=== PATIENT | female | born 1965 | race Caucasian/White ===

== ENCOUNTER 2022-12-25 08:57 | Emergency (ER) | payer OTHER, SELFPAY ==
[2022-12-25] VITALS (24 sets, daily range): BP systolic 161–163; BP diastolic 84–91; PULSE 70–101; RESP 13–22; TEMP 36.6; O2SAT 96–100; BMI 25.6
--- NOTE | 2022-12-25 09:22 | ECG_ITS ---
The [facility] Test Date: 2022-12-25 Pat Name: GILLIAN ISABEL Department: Room: - Gender: Female Student Officer: : 1965 Requested By: JAY ZAMBRANO Order Number: [id number] Reading MD: RAMILA BELTRÁN Measurements Intervals Orient Rate: 76 P: 56 CT: 136 QRS: 90 QRSD: 76 T: 49 QT: 390 QTc: 420 Interpretive Statements 1100 Sinus rhythm 1102 Sinus arrhythmia 9110 normal ECG No previous ECG available for comparison Electronically Signed On 12-26-2022 6:31:00 EDT by RAMILA BELTRÁN
--- NOTE | 2022-12-25 09:22 | XR_ITS ---
The [address] [address] Patient Name: GILLIAN ISABEL MRN: [id number] date: 1965 Sex: F Assigned Patient Location: ER Current Patient Location: ER Accession/Order Number: [id number] Exam Date: 12/25/2022 09:50 Report Date: 12/25/2022 10:33 At the request of: REILLY ZHONG Procedure: XR acute abdomen series EXAMINATION: XR acute abdomen series HISTORY: n/v/d COMPARISON: No relevant comparison available. FINDINGS: LUNGS: No infiltrate, pneumothorax, or pleural effusion. MEDIASTINUM: No abnormal widening. BOWEL GAS PATTERN: Non-obstructed. No abnormal dilation or suspicious fluid levels. FREE AIR: None. CALCIFICATIONS: Rounded calcification projecting anterior to the sacrum; likely a granuloma or uterine leiomyoma. BONES: No fracture or visible bone lesion. OTHER: Negative. IMPRESSION: 1. No acute cardiopulmonary process. 2. Normal bowel gas pattern. No suspicious findings to account for patient's symptoms. Electronically authenticated by: RICKY ANDUJAR Date: 12/25/2022 10:33
--- NOTE | 2022-12-25 09:22 | ED_ITS ---
HPI - Dizziness General Chief Complaint: Dizziness Stated Complaint: NAUSEA/VOMITTING Time Seen by Provider: 12/25/22 09:22 Source: patient Mode of arrival: Wheelchair Limitations: no limitations History of Present Illness HPI Narrative: pt presents to emergency department complaining of nausea and vomiting.He states last night after she ate pizza she has been vomiting and had diarrhea couple times. She denies any abdominal pain. She states she has vomited everything she has in her and she is now dry heaving. She only had this issue in the past when she had a gallbladder but she had a cholecystectomy. She denies any hematemesis, melena, hematochezia. She denies any fever, chills, cough. She denies chest pain, shortness of breath. Denies any flank pain, hematuria, dysuria. Patient denies any trauma. Denies any headache. Related Data Previous Rx's Medication Instructions Recorded ondansetron 8 mg disintegrating 8 mg PO Q8H #10 tabs 12/25/22 tablet Allergies Allergy/AdvReac Type Severity Reaction Status Date / Time No Known Drug Allergies Allergy Verified 12/25/22 09:04 Review of Systems ROS Status of ROS 10 or more systems reviewed and unremarkable except as noted in history and below PFSH PFS Social History Smoking status: Current every day smoker Exam Narrative Exam Narrative: Nurses notes and vital signs reviewed and patient is not hypoxic. General: Nontoxic, dry heaving, uncomfortable but not in distress. Skin: Warm, dry, no pallor noted. No Rash Head: Normocephalic, atraumatic. Neck: Supple, non-tender. Eye: Pupils are equal, round and EOMI. No scleral icterus. Ears, Nose, Mouth, and Throat: TM clear, no posterior oropharynx erythema or nasal mucosal hypertrophy, uvula is mid-line Oral mucosa is dry Cardiovascular: Regular Rate and Rhythm without murmur, gallop or rub. Respiratory: No accessory muscle use or respiratory distress. Lungs are clear to auscultation, no wheezing, rales or rhonchi Chest Wall: no tenderness Back: No midline thoracic or lumbar vertebral tenderness. No CVA tenderness Musculoskeletal: normal ROM, no calf or popliteal tenderness, no lower extremity edema/swelling GI: Abdomen is soft, non-distended. Normal bowel sounds. No masses appreciated. No tenderness to palpation. No rebound, guarding, or rigidity noted. Neurological: A&O x4. No cranial nerve dysfunction observed. No truncal ataxia. Moves all extremities. Sensation intact. Psychiatric: Cooperative and interactive. Constitutional Vital Signs - 24 hr 12/25/22 09:04 12/25/22 09:31 12/25/22 09:33 Temperature 97.9 F Pulse Rate 83 80 Pulse Rate [Monitor] 76 Respiratory Rate 18 16 15 Blood Pressure Blood Pressure [Right Arm] 161/84 H Pulse Oximetry 100 99 Oxygen Delivery Method Room Air 12/25/22 09:34 12/25/22 10:03 12/25/22 10:10 Temperature Pulse Rate 77 Pulse Rate [Monitor] Respiratory Rate 21 Blood Pressure 163/91 H Blood Pressure [Right Arm] Pulse Oximetry 96 96 Oxygen Delivery Method 12/25/22 10:20 12/25/22 11:01 12/25/22 11:10 Temperature Pulse Rate 78 80 86 Pulse Rate [Monitor] Respiratory Rate 20 14 17 Blood Pressure Blood Pressure [Right Arm] Pulse Oximetry 97 Oxygen Delivery Method 12/25/22 11:20 12/25/22 11:30 12/25/22 11:40 Temperature Pulse Rate 83 101 H 89 Pulse Rate [Monitor] Respiratory Rate 16 15 13 Blood Pressure Blood Pressure [Right Arm] Pulse Oximetry 98 Oxygen Delivery Method 12/25/22 11:50 12/25/22 12:00 12/25/22 12:10 Temperature Pulse Rate 81 72 74 Pulse Rate [Monitor] Respiratory Rate 20 21 22 Blood Pressure Blood Pressure [Right Arm] Pulse Oximetry Oxygen Delivery Method 12/25/22 12:20 12/25/22 12:30 12/25/22 12:40 Temperature Pulse Rate 83 95 H 77 Pulse Rate [Monitor] Respiratory Rate 19 18 19 Blood Pressure Blood Pressure [Right Arm] Pulse Oximetry Oxygen Delivery Method 12/25/22 12:50 12/25/22 13:00 12/25/22 13:10 Temperature Pulse Rate 76 73 71 Pulse Rate [Monitor] Respiratory Rate 18 15 22 Blood Pressure Blood Pressure [Right Arm] Pulse Oximetry 97 Oxygen Delivery Method 12/25/22 13:20 Temperature Pulse Rate 75 Pulse Rate [Monitor] Respiratory Rate 16 Blood Pressure Blood Pressure [Right Arm] Pulse Oximetry 98 Oxygen Delivery Method Course Vital Signs Vital signs: Vital Signs Temperature 97.9 F 12/25/22 09:04 Pulse Rate 76 12/25/22 09:04 Respiratory Rate 18 12/25/22 09:04 Blood Pressure 161/84 H 12/25/22 09:04 Pulse Oximetry 100 12/25/22 09:04 Oxygen Delivery Method Room Air 12/25/22 09:04 Temperature 97.9 F 12/25/22 09:04 Pulse Rate 72 12/25/22 16:15 Respiratory Rate 18 12/25/22 16:15 Blood Pressure 163/91 H 12/25/22 09:34 Pulse Oximetry 100 12/25/22 16:15 Oxygen Delivery Method Room Air 12/25/22 16:15 MDM - Dizziness MDM Narrative Medical decision making narrative: He was given IV fluids, antibiotics and analgesics. The patient was evaluated several times after antiemetics and she continued to vomit. THE results were discussed with the patient. She continued to run to the bathroom and CT scan was ordered. It demonstrated colitis. The patient continued to be dizzy and nauseated we tried Antivert to see if it was 2ry to vertigo but that did not help either. 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 And we discuss cyclic vomiting syndrome which she states it could be a possibility. The patient was given 10 mg of Haldol IM and this is what ultimately broke the cycle she felt better. Vomiting. Discussed with patient the need to discontinue marijuana. Continue hydration. Given a prescription for antiemetics. Follow up with primary care doctor and gastroenterology. At this time the patient is without objective evidence of an acute process requiring hospitalization or inpatient management. The patient has remained hemodynamically stable. No additional indication for emergent studies at this time. I answered all questions. Discussed discharge instructions including standard anticipatory guidance and what should prompt a return to the emergency department, including if they get worse are not getting better or develops any new or concerning symptoms. I've given them specific time frame in which to follow-up, and who to follow-up with. The patient demonstrates understanding. Patient is nontoxic and stable for discharge with outpatient follow-up. This note was created with the assistance of a speech recognition program. Although the intention is to generate documents that actually reflects the content of the visit, no guarantees can be provided that every mistake has been identified and corrected by editing. Differential Diagnosis Differential diagnosis: Likely benign paroxysmal positional vertigo and orthostatic hypotension Lab Data Attestation: I reviewed the patient's lab results. Labs: Lab Results 12/25/22 12/25/22 Range/Units 09:18 11:00 WBC 10.8 (4.0-11.0) 10^3/uL RBC 4.58 (4.20-5.40) 10^6/uL Hgb 14.4 (12.0-16.0) g/dL Hct 42.2 (36.0-48.0) % MCV 92.1 (81.0-99.0) fL MCH 31.4 (26.7-34.0) pg MCHC 34.1 (29.9-35.2) g/dL RDW 12.7 (11.0-15.0) % Plt Count 299 (150-450) 10^3/uL MPV 9.6 (9.5-13.5) fL Neut % (Auto) 89.0 H (43.0-75.0) % Lymph % (Auto) 7.6 L (20.5-60.0) % Maverick % (Auto) 2.6 (1.7-12.0) % Eos % (Auto) 0.0 L (0.9-7.0) % Baso % (Auto) 0.3 (0.2-2.0) % Neut # (Auto) 9.6 H (1.4-6.5) 10^3/uL Lymph # (Auto) 0.8 L (1.2-3.8) 10^3/uL Maverick # (Auto) 0.3 (0.3-0.8) 10^3/uL Eos # (Auto) 0.0 (0.0-0.7) 10^3/uL Baso # (Auto) 0.0 (0.0-0.1) 10^3/uL Abs Immat Gran (auto) 0.05 H (0.00-0.03) 10^3/uL Imm/Tot Granulo (auto) 0.5 (0.0-0.5) % Sodium 139 (136-145) mmol/L Potassium 3.5 (3.5-5.1) mmol/L Chloride 103 (98-107) mmol/L Carbon Dioxide 23.7 (21.0-32.0) mmol/L Anion Gap 15.8 BUN 8.0 (7.0-18.0) mg/dL Creatinine 0.90 (0.55-1.02) mg/dL Est GFR ( Amer) >60 (>=60) Est GFR (Non-Af Amer) >60 (>=60) BUN/Creatinine Ratio 8.9 Glucose 147 H (74-106) mg/dL Lactate 1.8 (0.4-2.0) mmol/L Calcium 9.5 (8.5-10.1) mg/dL Total Bilirubin 0.3 (0.2-1.0) mg/dL AST 16 (15-37) U/L ALT 17 (14-59) U/L Alkaline Phosphatase 139 H (46-116) U/L Troponin I High Sens 5.2 (4.0-51.3) pg/mL Total Protein 8.2 (6.4-8.2) g/dL Albumin 4.2 (3.4-5.0) g/dL Globulin 4.0 g/dL Albumin/Globulin Ratio 1.0 Lipase 55.0 L (73.0-393.0) U/L Urine Color Lt. yellow (YELLOW) Urine Clarity Clear (CLEAR) Urine pH 7.5 (5.0-9.0) Ur Specific Callaway 1.020 (1.005-1.025) Urine Protein Negative (NEG/TRACE) mg/dL Urine Glucose (UA) Negative (NEGATIVE) mg/dL Urine Ketones 15 A (NEGATIVE) mg/dL Urine Occult Blood Small A (NEGATIVE) Urine Nitrite Negative (NEGATIVE) Urine Bilirubin Negative (NEGATIVE) Urine Urobilinogen 0.2 (0.2-1.0) EU/dL Ur Leukocyte Esterase Negative (NEGATIVE) ECG Data Attestation: I personally reviewed and interpreted this ECG as follows: Discharge Plan Discharge Chief Complaint: Dizziness Clinical Impression: Cyclic vomiting syndrome, Colitis Patient Disposition: Home, Self-Care Time of Disposition Decision: 15:23 Condition: Good Mode of Transportation: Private Vehicle Prescriptions / Home Meds: New ondansetron 8 mg tablet,disintegrating 8 mg PO Q8H Qty: 10 0RF Instructions: Cyclic Vomiting Syndrome (ED) Stand Alone Forms: Portal Instructions Referrals: JAY ZAMBRANO [Primary Care Provider] - 1 week Discharge Date/Time: 12/25/22 16:14
[2022-12-25] MEDS: 0.9 % SODIUM CHLORIDE 1,000 ML 999 ML IV (09:26)
[2022-12-25] MEDS: ONDANSETRON PF 4 MG/2 ML VIAL IV ×2 (09:27→10:58)
[2022-12-25 09:29] LABS: Basophils Percent Auto 0.3 % (0.2-2.0); Hematocrit 42.2 % (36.0-48.0); Hemoglobin 14.4 g/dL (12.0-16.0); Immature Granulocytes Abs Auto 0.05 10^3/uL (0.00-0.03); Immature Granulocytes Pct Auto 0.5 % (0.0-0.5); Lymphocytes Absolute Auto 0.8 10^3/uL (1.2-3.8); Lymphocytes Percent Auto 7.6 % (20.5-60.0); Mean Corpuscular HGB Conc 34.1 g/dL (29.9-35.2); Mean Corpuscular Hemoglobin 31.4 pg (26.7-34.0); Mean Corpuscular Volume 92.1 fL (81.0-99.0); Mean Platelet Volume 9.6 fL (9.5-13.5); Monocytes Absolute Auto 0.3 10^3/uL (0.3-0.8); Monocytes Percent Auto 2.6 % (1.7-12.0); Neutrophils Absolute Auto 9.6 10^3/uL (1.4-6.5); Platelet Count 299 10^3/uL (150-450); Red Blood Count 4.58 10^6/uL (4.20-5.40); Red Cell Distribution Width 12.7 % (11.0-15.0); White Blood Count 10.8 10^3/uL (4.0-11.0)
[2022-12-25 09:57] LABS: Alanine Aminotransferase 17 U/L (14-59); Albumin Level 4.2 g/dL (3.4-5.0); Alkaline Phosphatase 139 U/L (46-116); Anion Gap 15.8; Aspartate Amino Transferase 16 U/L (15-37); BUN Creatinine Ratio 8.9; Bilirubin Total 0.3 mg/dL (0.2-1.0); Calcium 9.5 mg/dL (8.5-10.1); Carbon Dioxide 23.7 mmol/L (21.0-32.0); Chloride 103 mmol/L (98-107); Estimated GFR (African America >60 (>=60); Estimated GFR (Non-African Ame >60 (>=60); Glucose 147 mg/dL (74-106); Potassium 3.5 mmol/L (3.5-5.1); Sodium 139 mmol/L (136-145); Total Protein 8.2 g/dL (6.4-8.2); Troponin I High Sensitivity 5.2 pg/mL (4.0-51.3)
[2022-12-25 09:59] LABS: Lactate/Lactic Acid 1.8 mmol/L (0.4-2.0)
[2022-12-25] MEDS: PROMETHAZINE HCL 25 MG/ML VIAL IV (10:58)
[2022-12-25 11:24] LABS: Bilirubin Urine NEGATIVE (NEGATIVE); Blood Urine SMALL (NEGATIVE); Clarity Urine CLEAR (CLEAR); Color Urine LT. YELLOW (YELLOW); Glucose Urine UA NEGATIVE (NEGATIVE); Ketones Urine 15 mg/dL (NEGATIVE); Leukocyte Esterase Urine NEGATIVE (NEGATIVE); Nitrite Urine NEGATIVE (NEGATIVE); Protein Urine NEGATIVE (NEG/TRACE); Urobilinogen Urine 0.2 EU/dL (0.2-1.0); pH Urine 7.5 (5.0-9.0)
[2022-12-25] MEDS: MECLIZINE HCL 12.5 MG TABLET 50 MG PO (13:01)
--- NOTE | 2022-12-25 13:13 | CT_ITS ---
The [address] [address] Patient Name: GILLIAN ISABEL MRN: [id number] date: 1965 Sex: F Assigned Patient Location: ER Current Patient Location: ER Accession/Order Number: [id number] Exam Date: 12/25/2022 13:35 Report Date: 12/25/2022 14:20 At the request of: REILLY ZHONG Procedure: CT head/brain wo con EXAMINATION: CT head/brain wo con HISTORY: dizziness Dizziness COMPARISON: No relevant comparison available. TECHNIQUE: Axial CT images were obtained without IV contrast. Dose reduction techniques were achieved by using automated exposure control and/or adjustment of mA and/or kV according to patient size and/or use of iterative reconstruction technique. FINDINGS: BRAIN: No edema, hemorrhage, mass, acute infarction, or inappropriate atrophy. CSF SPACES: No hydrocephalus, subarachnoid hemorrhage, or mass. Appropriate for age. SKULL: No fracture, mass, or other significant visible lesion. SINUSES: No significant mucosal thickening or fluid on the limited views. ORBITS: No appreciable abnormality on the limited views. OTHER: Negative IMPRESSION: 1. Normal CT appearance of the brain. Electronically authenticated by: RICKY ANDUJAR Date: 12/25/2022 14:20
[2022-12-25] MEDS: DIAZEPAM 5 MG/ML - 2 ML INJ SYRINGE IV (13:25)
--- NOTE | 2022-12-25 13:36 | CT_ITS ---
[address] [address] Patient Name: GILLIAN ISABEL MRN: [id number] date: 1965 Sex: F Assigned Patient Location: ER Current Patient Location: ER Accession/Order Number: [id number] Exam Date: 12/25/2022 13:35 Report Date: 12/25/2022 14:50 At the request of: REILLY ZHONG Procedure: CT abdomen pelvis w con EXAMINATION: CT abdomen pelvis w con HISTORY: n/v Dizziness/nausea/vomiting/diarrhea COMPARISON: No relevant comparison available. TECHNIQUE: Axial, Coronal, and Sagittal images were obtained without and/or with IV contrast as indicated by examination type. Dose reduction techniques were achieved by using automated exposure control and/or adjustment of mA and/or kV according to patient size and/or use of iterative reconstruction technique. FINDINGS: LUNG BASES: No visible pulmonary or pleural disease. LIVER: No enlargement, atrophy, suspicious density, or significant focal lesion. BILIARY: No dilatation or calcification. PANCREAS: No lesion, fluid collection, or abnormal duct dilatation. SPLEEN: No enlargement or focal lesion. ADRENALS: No mass or enlargement. KIDNEYS: No mass, obstruction, or calcification. BOWEL/MESENTERY: Slightly edematous appearance and wall thickening of the cecum and ascending colon. Empty colon throughout its length. Unremarkable stomach and small bowel. AORTA/VASCULAR: No aneurysm or dissection. RETROPERITONEUM: No mass or adenopathy. LYMPH NODES: No adenopathy. URINARY BLADDER: No visible focal wall thickening, lesion, or calculus. PELVIC ORGANS: No visible mass. Pelvic organs appropriate for patient age. ABDOMINAL WALL: No mass or hernia. BONES: No bony lesion or fracture. OTHER: Negative. IMPRESSION: 1.Empty colon and slight circumferential wall thickening of the proximal colon; possible mild colitis. Electronically authenticated by: RICKY ANDUJAR Date: 12/25/2022 14:50
[2022-12-25] MEDS: HALOPERIDOL LACTATE 5 MG/ML VIAL 10 MG IM (15:20)
== END 2022-12-25 16:14 | disposition home or self-care (01) ==
PROVIDERS: Emergency Provider Emergency Medicine; PCP Family Medicine
DX: K52.9 Noninfective gastroenteritis and colitis, unspecified (principal); R11.15 Cyclical vomiting syndrome unrelated to migraine; F12.90 Cannabis use, unspecified, uncomplicated; Z90.49 Acquired absence of other specified parts of digestive tract; F17.210 Nicotine dependence, cigarettes, uncomplicated
CPT/HCPCS: 36415; 70450; 74022; 74177; 80053; 81003; 83605; 83690; 84484; 85025; 87507; 93005; 96372; 96374; 96375; 96376; 99285; Q9967

== ENCOUNTER 2023-09-16 10:48 | Emergency (ER) | payer OTHER, SELFPAY ==
[2023-09-16 10:52] VITALS: BP 145/89; PULSE 77; RESP 15; TEMP 36.8; O2SAT 98; BMI 23.9
--- NOTE | 2023-09-16 11:38 | ED.NAVMDI1 ---
HPI - Nausea/Vomiting/Diarrhea General Chief complaint: Nausea/Vomiting/Diarrhea Stated complaint: vomiting Time Seen by Provider: 09/16/23 11:38 Source: patient Mode of arrival: walk-in Limitations: no limitations History of Present Illness HPI Narrative: This patient is here for evaluation of nausea vomiting and diarrhea. She says she ate some roots shredded chicken last night for dinner and then went to work. About 4 hours after she ate her meal she had abrupt onset of nausea and vomiting. He had repeated episodes of nausea vomiting and had a little bit of diarrhea. She went home from work and continued to vomit throughout the evening. 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 She has used 2 Phenergan suppositories . She has not seen any blood in the stool or the vomitus. Past surgical history includes cholecystectomy but no other abdominal procedures. She does not have any abdominal pain at this time. She thinks she is little bit dehydrated. Related Data Previous Rx's Medication Instructions Recorded ondansetron 8 mg disintegrating 8 mg PO Q8H #10 tabs 12/25/22 tablet Allergies Allergy/AdvReac Type Severity Reaction Status Date / Time No Known Drug Allergies Allergy Verified 12/25/22 09:04 [facility] Social History Smoking status: Current every day smoker Exam Narrative Exam Narrative: Awake alert pleasant no obvious distress. Vital signs are stable. She moves about comfortably with no evidence of abdominal discomfort. Problem focused examination as below. Her abdomen is soft and tender nontender with no guarding rebound rigidity or peritoneal findings. She moves about with no grimacing or discomfort at all. HEENT shows no focus of infection. Her mucous membranes are moist and pink. Her extremities do not show evidence of leg swelling or edema. Overall hydration status appears essentially normal. Constitutional Vital Signs, click to edit/add: Last Vital Signs Temp 98.3 F 09/16/23 10:52 Pulse 77 09/16/23 10:52 Resp 15 09/16/23 10:52 BP 145/89 H 09/16/23 10:52 Pulse Ox 98 09/16/23 10:52 O2 Del Method Room Air 09/16/23 10:52 Course Vital Signs Vital signs: Vital Signs Temperature 98.3 F 09/16/23 10:52 Pulse Rate 77 09/16/23 10:52 Respiratory Rate 15 09/16/23 10:52 Blood Pressure 145/89 H 09/16/23 10:52 Pulse Oximetry 98 09/16/23 10:52 Oxygen Delivery Method Room Air 09/16/23 10:52 Temperature 98.3 F 09/16/23 10:52 Pulse Rate 77 09/16/23 10:52 Respiratory Rate 15 09/16/23 10:52 Blood Pressure 145/89 H 09/16/23 10:52 Pulse Oximetry 98 09/16/23 10:52 Oxygen Delivery Method Room Air 09/16/23 10:52 MDM - Nausea/Vomiting/Diarrhea MDM Narrative Medical decision making narrative: Based on her description of not taking any fluids and some fluid loss with diarrhea I think she will benefit from IV hydration, she in fact tolerated liter fluids very well and feels better. 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 Her symptoms are most consistent with a viral gastroenteritis. Discharge Plan Discharge Chief Complaint: Nausea/Vomiting/Diarrhea Clinical Impression: Gastroenteritis Patient Disposition: Home, Self-Care Time of Disposition Decision: 12:46 Prescriptions / Home Meds: No Action ondansetron 8 mg tablet,disintegrating 8 mg PO Q8H Qty: 10 0RF Additional Instructions: Clear fluids and small but frequent amounts for the next 24 hours, then slowly expand diet/Zofran as needed for nausea Referrals: JAY ZAMBRANO [Primary Care Provider] - 1 week Stand Alone Forms: Portal Instructions
[2023-09-16 11:49] LABS: Basophils Percent Auto 0.2 % (0.2-2.0); Hematocrit 45.8 % (36.0-48.0); Hemoglobin 15.3 g/dL (12.0-16.0); Immature Granulocytes Abs Auto 0.06 10^3/uL (0.00-0.03); Immature Granulocytes Pct Auto 0.5 % (0.0-0.5); Lymphocytes Absolute Auto 0.8 10^3/uL (1.2-3.8); Mean Corpuscular HGB Conc 33.4 g/dL (29.9-35.2); Mean Corpuscular Volume 92.9 fL (81.0-99.0); Mean Platelet Volume 10.1 fL (9.5-13.5); Monocytes Absolute Auto 0.4 10^3/uL (0.3-0.8); Monocytes Percent Auto 3.4 % (1.7-12.0); Neutrophils Absolute Auto 10.7 10^3/uL (1.4-6.5); Neutrophils Percent Auto 88.9 % (43.0-75.0); Platelet Count 296 10^3/uL (150-450); Red Blood Count 4.93 10^6/uL (4.20-5.40); Red Cell Distribution Width 12.3 % (11.0-15.0)
[2023-09-16] MEDS: 0.9 % SODIUM CHLORIDE 1,000 ML 999 ML IV (11:49)
[2023-09-16] MEDS: ONDANSETRON PF 4 MG/2 ML VIAL IV (11:50)
[2023-09-16 11:51] LABS: Anion Gap 15.9; BUN Creatinine Ratio 13.2; Calcium 9.3 mg/dL (8.5-10.1); Carbon Dioxide 25.6 mmol/L (21.0-32.0); Chloride 102 mmol/L (98-107); Estimated GFR (African America >60 (>=60); Estimated GFR (Non-African Ame >60 (>=60); Glucose 145 mg/dL (74-106); Potassium 3.5 mmol/L (3.5-5.1); Sodium 140 mmol/L (136-145)
[2023-09-16 12:19] VITALS: BP 106/63; PULSE 55; RESP 16; O2SAT 100
[2023-09-16 12:55] VITALS: BP 99/65; PULSE 74; RESP 16; O2SAT 98
== END 2023-09-16 12:56 | disposition home or self-care (01) ==
PROVIDERS: Emergency Provider Emergency Medicine Emergency Medical Services; PCP Family Medicine
DX: K52.9 Noninfective gastroenteritis and colitis, unspecified (principal); F17.210 Nicotine dependence, cigarettes, uncomplicated
CPT/HCPCS: 36415; 80048; 85025; 96361; 96374; 99284

== ENCOUNTER 2023-09-17 07:50 | Emergency (ER) | payer OTHER, SELFPAY ==
[2023-09-17] VITALS (8 sets, daily range): BP systolic 128–154; BP diastolic 61–66; PULSE 65–105; RESP 13–18; TEMP 36.7; O2SAT 98–99; BMI 23.9
--- OUTSIDE RECORDS SUMMARY | 2023-09-17 08:05 | XMS_ITS | CCD ---
Author Name Unknown Address [address] [place] [address] [address] [place] [address] Organization [facility] Care Team Providers Care Insurance And Financial Services Agent Name Role Phone JUAN MANUEL, DR THOMPSON Consulting Unavailable JUAN MANUEL, DR THOMPSON Attending Unavailable JUAN MANUEL, DR THOMPSON Admitting Unavailable JUAN MANUEL, DR THOMPSON Primary Care Unavailable PRATIMA, DR LANDRY Alejandro Consulting Unavailable Problems Problem Classification Problem Date Documented Da te Episodic/Chronic Other screening for suspected conditions (not mental disorders or infectious disease) (4 sources) Encounter for screening mammogram for malignant neoplasm of breast; Translations: [ENC SCR MAMMO MALIG NEOPLASM BREAST] Onset: 06-27-2022 Episodic Residual codes; unclassified (1 source) Family history of malignant neoplasm of breast; Translations: [FAMILY HX MALIG NEOPLASM OF BREAST] Onset: 07-02-2022 Episodic Residual codes; unclassified (1 source) Family history of malignant neoplasm of prostate; Translations: [FAMILY HX MALIG NEOPLASM PROSTATE] Onset: 07-02-2022 Episodic Results Test Name Value Interpretation Reference Range Facil ity MG MAMM SCREEN 3D SAMIR CADon 06-27-2022 MG MAMM SCREEN 3D SAMIR CAD Patient: GILLIAN ISABEL Exam Date: 06/27/2022 : 1965 Gender:F Ordering : DR JAY ZAMBRANO M.D. Admission #: [id number] Family : Order #: [id number] CLICK HERE TO VIEW EXAM RADIOLOGY REPORT PROCEDURE: MAMMOGRAM SCREENING 3D BILATERAL CAD COMPARISON: MG MAMM SCREEN SAMIR W CAD, 11/27/2016. MG MAMM SAMIR SCRN W CAD DIG, 11/18/2015. DIGITIZED_MAMMO, 02/28/2007. MG MAMM SCREEN SAMIR W CAD, 03/21/2019. INDICATIONS: Screening mammography Calculator Name NCI Breast Cancer Risk Assessment Tool 5 Year Breast Cancer Risk 2.50% Lifetime Breast Cancer Risk 14.50% Personal Breast Cancer No Personal Ovarian Cancer No Treatments None Family Cancers Mother with breast cancer at age 65; Father with prostate cancer at age 68. LOCATION: [facility] BREAST COMPOSITION: Scattered areas fibroglandular density. FINDINGS: DIAGNOSTIC CATEGORY 2--BENIGN FINDING: RIGHT BREAST: No significant suspicious finding. Stable benign-appearing calcification present. No significant change has occurred. LEFT BREAST: No significant suspicious finding. No significant change has occurred. RECOMMENDATIONS: ROUTINE MAMMOGRAM AND CLINICAL EVALUATION IN 12 MONTHS. PLEASE NOTE: A NORMAL MAMMOGRAM DOES NOT EXCLUDE THE POSSIBILITY OF BREAST CANCER. A CLINICALLY SUSPICIOUS PALPABLE LUMP SHOULD BE BIOPSIED. Dictated by: Landry Mitchell M.D. on 06/27/2022 at 15:16 Approved by: Landry Mitchell M.D. on 06/27/2022 at 15:19 Normal [facility] Encounters Encounter Date Encounter Type Care Provider Facility Start: 06-27-2022 End: 06-28-[address] JAY ZAMBRANO Facility: Payers Date Payer Category Payer Unknown [id number] 1959 Unknown [id number] Summary Purpose Family History No Family History Records Found Advance Directives No Advanced Directives Records Found Additional Source Comments INFORMATION SOURCE (unrecogn ized section and content) DATE CREATED AUTHOR 09/16/2022 [facility] FOR RECORDS PERTAINING TO PATIENTS WHO ARE OR HAVE BEEN ENROLLED IN A CHEMICAL DEPENDENCY/SUBSTANCEABUSE PROGRAM, SOME INFORMATION MAY BE OMITTED. This clinical summary was aggregated from multiple sources. Caution should be exercised in using it in the provision of clinical care. This summary normalizes information from multiple sources, and as a consequence, information in this document may materially change the coding, format and clinical context of patient data. In addition, data may be omitted in some cases. CLINICAL DECISIONS SHOULD BE BASED ON THE PRIMARY CLINICAL RECORDS. [employer] provides no warranty or guarantee of the accuracy or completeness of information in this document.
[2023-09-17] MEDS: 0.9 % SODIUM CHLORIDE 1,000 ML 999 ML IV (08:18)
[2023-09-17] MEDS: PROMETHAZINE HCL 25 MG/ML VIAL 12.5 MG IV (08:18)
[2023-09-17 08:25] LABS: Basophils Percent Auto 0.2 % (0.2-2.0); Hematocrit 44.3 % (36.0-48.0); Immature Granulocytes Abs Auto 0.07 10^3/uL (0.00-0.03); Immature Granulocytes Pct Auto 0.5 % (0.0-0.5); Lymphocytes Absolute Auto 2.3 10^3/uL (1.2-3.8); Mean Corpuscular HGB Conc 33.9 g/dL (29.9-35.2); Mean Corpuscular Hemoglobin 31.1 pg (26.7-34.0); Mean Corpuscular Volume 91.9 fL (81.0-99.0); Mean Platelet Volume 9.6 fL (9.5-13.5); Monocytes Absolute Auto 1.2 10^3/uL (0.3-0.8); Monocytes Percent Auto 8.4 % (1.7-12.0); Neutrophils Absolute Auto 10.7 10^3/uL (1.4-6.5); Neutrophils Percent Auto 74.9 % (43.0-75.0); Platelet Count 306 10^3/uL (150-450); Red Blood Count 4.82 10^6/uL (4.20-5.40); Red Cell Distribution Width 12.4 % (11.0-15.0); White Blood Count 14.2 10^3/uL (4.0-11.0)
[2023-09-17 08:38] LABS: Bilirubin Urine NEGATIVE (NEGATIVE); Blood Urine SMALL (NEGATIVE); Clarity Urine CLEAR (CLEAR); Color Urine YELLOW (YELLOW); Glucose Urine UA NEGATIVE (NEGATIVE); Ketones Urine >=80 mg/dL (NEGATIVE); Leukocyte Esterase Urine NEGATIVE (NEGATIVE); Nitrite Urine NEGATIVE (NEGATIVE); Protein Urine 30 mg/dL (NEG/TRACE); Specific Gravity Urine 1.025 (1.005-1.025); Urobilinogen Urine 0.2 EU/dL (0.2-1.0)
[2023-09-17 08:41] LABS: Urine Microscopic Indicated YES
[2023-09-17 08:49] LABS: Bacteria Urine SMALL #/HPF (NONE SEEN); Cast Seen? SEEN #/LPF (NONE SEEN); Crystals Seen? None Seen #/HPF (None Seen); Hyaline Casts Urine RARE; Mucus Urine SMALL (NONE SEEN); Squamous Epithelial Cell Urine MODERATE #/LPF (NONE/RARE)
[2023-09-17 08:50] LABS: Urine Culture Indicated YES
[2023-09-17 08:51] LABS: Amphetamine Screen Urine NEGATIVE (NEGATIVE); Barbiturates Screen Urine NEGATIVE (NEGATIVE); Benzodiazepines Screen Urine NEGATIVE (NEGATIVE); Buprenorphine Screen Urine NEGATIVE (NEGATIVE); Cannabinoid Screen Urine POSITIVE (NEGATIVE); Cocaine Screen Urine NEGATIVE (NEGATIVE); Methadone Screen Urine NEGATIVE (NEGATIVE); Methamphetamines Screen Urine NEGATIVE (NEGATIVE); Opiate Screen Urine NEGATIVE (NEGATIVE); Oxycodone Screen Urine NEGATIVE (NEGATIVE); Phencyclidine Screen Urine NEGATIVE (NEGATIVE); Tricyclic Antidepressant Urine NEGATIVE (NEGATIVE)
--- NOTE | 2023-09-17 09:29 | ED.NAVMDI1 ---
HPI - Nausea/Vomiting/Diarrhea General Chief complaint: Nausea/Vomiting/Diarrhea Stated complaint: NAUSEA/PUKING Time Seen by Provider: 09/17/23 08:00 Source: patient Mode of arrival: walk-in Limitations: no limitations History of Present Illness HPI Narrative: Patient here with vomiting. She went home from the hospital yesterday and felt fine but approximately 3:00 in the morning she started having some dry heaves and vomiting again. She took 1 Zofran, then repeated in about an hour. She has not had any diarrhea. She has not had fever shakes or chills. We hydrated her yesterday and she felt pretty good but then she had recurring symptoms. I will repeat her lipase today CBC and urinalysis as well as toxicology screen. Related Data Previous Rx's Medication Instructions Recorded ondansetron 8 mg disintegrating 8 mg PO Q8H #10 tabs 12/25/22 tablet Allergies Allergy/AdvReac Type Severity Reaction Status Date / Time No Known Drug Allergies Allergy Verified 12/25/22 09:04 PFSH PFSH Social History Smoking status: Former smoker Exam Narrative Exam Narrative: Patient is awake alert somewhat belligerent with nursing staff. Vital signs are stable with no tachycardia. Overall no evidence of nuchal rigidity or meningeal irritation. Her skin is warm and dry there is no clammy clamminess or diaphoresis or cyanosis. She has some burning sensation in her throat from the vomiting she believes. There is no respiratory distress cough or congestion. Cognition and mentation are normal. Constitutional Vital Signs, click to edit/add: Last Vital Signs Temp 98.1 F 09/17/23 07:52 Pulse 69 09/17/23 07:52 Resp 18 09/17/23 07:52 BP 152/63 H 09/17/23 07:52 Pulse Ox 98 09/17/23 07:52 O2 Del Method Room Air 09/17/23 07:52 Course Vital Signs Vital signs: Vital Signs Temperature 98.1 F 09/17/23 07:52 Pulse Rate 69 09/17/23 07:52 Respiratory Rate 18 09/17/23 07:52 Blood Pressure 152/63 H 09/17/23 07:52 Pulse Oximetry 98 09/17/23 07:52 Oxygen Delivery Method Room Air 09/17/23 07:52 Temperature 98.1 F 03/04/24 07:52 Pulse Rate 69 09/17/23 07:52 Respiratory Rate 18 09/17/23 07:52 Blood Pressure 152/63 H 09/17/23 07:52 Pulse Oximetry 98 09/17/23 07:52 Oxygen Delivery Method Room Air 09/17/23 07:52 MDM - Nausea/Vomiting/Diarrhea MDM Narrative Medical decision making narrative: Patient took Zofran before arrival here and still has some nausea so have given her Phenergan IV. She was given another liter of fluids. The urine toxicology screen is positive for marijuana which is probably a contributing role in her symptoms today. Her lipase is normal. White blood cell count modestly elevated consistent with her vomiting. She was given another liter of fluids. Of significance the patient says she needed to use the restroom and when the nurse stood her up in the room instead of walking several steps to use the restroom she urinated voluntarily all over the floor. Her urine test has some bacteria and white blood cells although it does not appear to be a sterile specimen until her culture comes back I will start her on an antibiotic therapy Lab Data Labs: Lab Results 09/17/23 09/17/23 Range/Units 08:03 08:22 WBC 14.2 H (4.0-11.0) 10^3/uL RBC 4.82 (4.20-5.40) 10^6/uL Hgb 15.0 (12.0-16.0) g/dL Hct 44.3 (36.0-48.0) % MCV 91.9 (81.0-99.0) fL MCH 31.1 (26.7-34.0) pg MCHC 33.9 (29.9-35.2) g/dL RDW 12.4 (11.0-15.0) % Plt Count 306 (150-450) 10^3/uL MPV 9.6 (9.5-13.5) fL Neut % (Auto) 74.9 (43.0-75.0) % Lymph % (Auto) 16.0 L (20.5-60.0) % [place] % (Auto) 8.4 (1.7-12.0) % Eos % (Auto) 0.0 L (0.9-7.0) % Baso % (Auto) 0.2 (0.2-2.0) % Neut # (Auto) 10.7 H (1.4-6.5) 10^3/uL Lymph # (Auto) 2.3 (1.2-3.8) 10^3/uL [place] # (Auto) 1.2 H (0.3-0.8) 10^3/uL Eos # (Auto) 0.0 (0.0-0.7) 10^3/uL Baso # (Auto) 0.0 (0.0-0.1) 10^3/uL Abs Immat Gran (auto) 0.07 H (0.00-0.03) 10^3/uL Imm/Tot Granulo (auto) 0.5 (0.0-0.5) % Lipase 58.0 (16.0-77.0) U/L Urine Color Yellow (YELLOW) Urine Clarity Clear (CLEAR) Urine pH 6.0 (5.0-9.0) Ur Specific [place] 1.025 (1.005-1.025) Urine Protein 30 A (NEG/TRACE) mg/dL Urine Glucose (UA) Negative (NEGATIVE) mg/dL Urine Ketones >=80 A (NEGATIVE) mg/dL Urine Occult Blood Small A (NEGATIVE) Urine Nitrite Negative (NEGATIVE) Urine Bilirubin Negative (NEGATIVE) Urine Urobilinogen 0.2 (0.2-1.0) EU/dL Ur Leukocyte Esterase Negative (NEGATIVE) Urine RBC 5-10 A (0-2) #/HPF Urine WBC 5-10 A (NONE SEEN) #/HPF Ur Squamous Epith Cells Moderate A (NONE/RARE) #/LPF Urine Crystals None seen (None Seen) #/HPF Urine Bacteria Small A (NONE SEEN) #/HPF Urine Casts Seen A (NONE SEEN) #/LPF Hyaline Casts Rare Urine Mucus Small A (NONE SEEN) Ur Culture Indicated? Yes Urine Opiates Screen Negative (NEGATIVE) Ur Buprenorphine Scrn Negative (NEGATIVE) Ur Oxycodone Screen Negative (NEGATIVE) Urine Methadone Screen Negative (NEGATIVE) Ur Barbiturates Screen Negative (NEGATIVE) U Tricyclic Antidepress Negative (NEGATIVE) Ur Phencyclidine Scrn Negative (NEGATIVE) Ur Amphetamines Screen Negative (NEGATIVE) U Methamphetamines Scrn Negative (NEGATIVE) U Benzodiazepines Scrn Negative (NEGATIVE) Urine Cocaine Screen Negative (NEGATIVE) U Cannabinoids Screen Positive A (NEGATIVE) Discharge Plan Discharge Chief Complaint: Nausea/Vomiting/Diarrhea Clinical Impression: Vomiting Patient Disposition: Home, Self-Care Time of Disposition Decision: 09:35 Prescriptions / Home Meds: No Action ondansetron 8 mg tablet,disintegrating 8 mg PO Q8H Qty: 10 0RF Additional Instructions: Macrobid/call for final urine culture results 48 hours Referrals: JAY ZAMBRANO [Primary Care Provider] - 1 week Stand Alone Forms: Portal Instructions
[2023-09-17] MEDS: HALOPERIDOL LACTATE 5 MG/ML VIAL IV (10:06)
--- NOTE | 2023-09-17 10:14 | ECG_ITS ---
[facility] Test Date: 2023-09-17 Pat Name: GILLIAN ISABEL Department: Room: - Gender: Female Inker: : 1965 Requested By: JAY ZAMBRANO Order Number: [id number] Reading MD: JOSE HINOJOSA Measurements Intervals [place] Rate: 61 P: 68 GA: 128 QRS: 92 QRSD: 76 T: 75 QT: 420 QTc: 423 Interpretive Statements 1100 Sinus rhythm 7102 Moderate right axis deviation 9110 normal ECG Compared to ECG 12/25/2022 09:32:22 Right-axis deviation now present Sinus arrhythmia no longer present Electronically Signed On 09-17-2023 22:35:10 EST by JOSE HINOJOSA
--- NOTE | 2023-09-17 10:27 | PC.NURSE ---
Daughter at bedside. Patient given education on importance of quitting marijuana. Daughter states my mother has been a stoner all her life, ever since I was a little girl that's what I remember. Education given on use of zofran and clear liquid diet. Patient states understanding.
== END 2023-09-17 10:09 | disposition home or self-care (01) ==
PROVIDERS: Emergency Provider Emergency Medicine Emergency Medical Services; PCP Family Medicine
DX: R11.10 Vomiting, unspecified (principal); R82.5 Elevated urine levels of drugs, medicaments and biological substances; Z87.891 Personal history of nicotine dependence
CPT/HCPCS: 36415; 80307; 81001; 83690; 85025; 87086; 93005; 96361; 96374; 96375; 99284

== ENCOUNTER 2023-11-30 17:12 | Emergency (ER) | payer OTHER, SELFPAY ==
[2023-11-30 17:19] VITALS: BP 157/87; PULSE 88; TEMP 36.7; O2SAT 99; BMI 24.7
--- OUTSIDE RECORDS SUMMARY | 2023-11-30 17:46 | XMS_ITS | CCD ---
Author Organization [facility] Care Team Providers Care Video Specialist Name Role Phone JUAN MANUEL, DR THOMPSON Consulting Unavailable JUAN MANUEL, DR THOMPSON Attending Unavailable JUAN MNAUEL, DR THOMPSON Admitting Unavailable JUAN MANUEL, DR THOMPSON Primary Care Unavailable PRATIMA, DR RICKY Alejandro Consulting Unavailable JAY ZAMBRANO Attending Unavailable Problems Problem Classification Problem Date Documented [...] 06/27/2022 : 1965 Gender:F Ordering : DR AJY ZAMBRANO M.D. Admission #: [id number] Family : Order #: [id number] CLICK HERE TO VIEW EXAM RADIOLOGY REPORT [...] prostate cancer at age 68. LOCATION: [facility] BREAST COMPOSITION: Scattered areas fibroglandular density. [...] PALPABLE LUMP SHOULD BE BIOPSIED. Dictated by: Ricky Mitchell M.D. on 06/27/2022 at 15:16 Approved by: Ricky Mitchell M.D. on 06/27/2022 at 15:19 Normal [facility] Encounters Encounter Date Encounter Type Care Provider Facility Start: 09-27-2023 End: 09-27-2023 ambulatory JAY ZAMBRANO Not Available Start: 06-27-2022 End: 06-28-[address] JAY ZAMBRANO Facility: Payers Date Payer Category Payer Unknown [id number] 1965 Unknown [id number] 1965 Unknown [id number] 1959 Unknown [id number] Summary Purpose Family History No Family History Records FoundNo Family History Records Found Advance Directives No Advanced Directives Records FoundNo Advanced Directives Records Found Additional Source Comments INFORMATION SOURCE (unrecogn ized section and content) DATE CREATED AUTHOR 09/16/2022 [facility] DATE CREATED AUTHOR AUTHOR'S ORGANIZ ATION 09/29/2023 [facility] FOR RECORDS PERTAINING TO PATIENTS WHO ARE [...] BE BASED ON THE PRIMARY CLINICAL RECORDS. [facility] [employer] [facility] provides no warranty or guarantee of the accuracy or completeness of information in this document.
--- NOTE | 2023-11-30 18:23 | ED.GENADUL1 ---
Documented by User: AMAURI Chen 11/30/23 20:13 HPI HPI - General Adult General Chief complaint: Nausea/Vomiting/Diarrhea Stated complaint: Nausea/Vomiting/Diarrhea Time Seen by Provider: 11/30/23 18:18 Source: patient and friend Mode of arrival: walk-in Limitations: no limitations History of Present Illness HPI narrative: Patient is a 58-year-old female presents to the ER with concerns of intractable nausea and vomiting. Patient states symptoms started around 4 AM, got temporary relief while taking a warm shower and then symptoms came back. Unable to keep down p.o. food or liquids. She denies any diarrhea or fever. Denies dysuria. Patient had a similar episode in September related to marijuana use. Patient admits to smoking marijuana on Sunday with friends. Patient Denies any chest pain or shortness of breath. Denies abdominal pain. Patient dry heaving loudly. I am just dehydrated. Severity: moderate Pain Consistency: Reports constant Relieving factors: Reports other (warm shower. ) Treatments prior to arrival: Reports none Related Data Home Medications ?Medication ?Instructions ?Recorded ?Confirmed levothyroxine 125 mcg tablet 125 mcg PO DAILY 11/30/23 11/30/23 Previous Rx's ?Medication ?Instructions ?Recorded ondansetron 8 mg disintegrating 8 mg PO Q8H #10 tabs 12/25/22 tablet Allergies Allergy/AdvReac Type Severity Reaction Status Date / Time No Known Drug Allergies Allergy Verified 12/25/22 09:04 Opioid HPI Opioid Management Most Recent Opioid Data: Last Pain Scale 8 09/17/23 07:56 Last ED Pain Assessment 11/30/23 18:19 Ur Phencyclidine Scrn Negative (NEGATIVE) 09/17/23 08:22 Review of Systems ROS Constitutional Denies: fever or chills Eyes Denies: change in vision Ears, nose, mouth, and throat Denies: throat pain or neck pain Cardiovascular Denies: chest pain or palpitations Respiratory Denies: shortness of breath or cough Gastrointestinal Reports: nausea and vomiting; Denies: abdominal pain or heartburn Genitourinary Denies: painful urination Musculoskeletal Denies: back pain or neck pain Integumentary/Breast Denies: rash, itching or redness Neurological Denies: headache Psychiatric Reports: anxiety PFSH PFSH Social History Smoking status: Former smoker Exam Narrative Exam Narrative: Nurses notes and vital signs reviewed and patient is not hypoxic. General: The patient appears In no distress having conversation at bedside before pausing to retch loudly with no output. Patient apologetic, states she cannot stop feeling nauseous. Patient is resting comfortably on cart upon Entrance to the room. Skin: Warm, dry, no pallor noted.No evidence of rash. Head: Normocephalic, atraumatic Neck: Supple, trachea mid-line, no tenderness, no lymphadenopathy Eye: Pupils are equal, round and reactive to light, EOMI Ears, Nose, Mouth, and Throat: TM are clear, normal light reflex, oral mucosa is moist, no posterior oropharynx erythema or hypertrophy, uvula is mid-line Cardiovascular: Regular Rate and Rhythm Respiratory: Patient is in no distress, no accessory muscle use, lungs are clear to auscultation, no wheezing, rales or rhonchi. Chest Wall: no tenderness Back: non-tender, no CVA tenderness Musculoskeletal: normal ROM, no tenderness, no swelling GI: Normal bowel sounds, no tenderness to palpation, no masses appreciated. No rebound, guarding, or rigidity noted. Neurological: A&O x4 Psychiatric: Cooperative Constitutional Vital Signs, click to edit/add: Last Vital Signs Temp 98.0 F 11/30/23 17:19 Pulse 88 11/30/23 17:19 Resp 18 11/30/23 17:19 BP 157/87 H 11/30/23 17:19 Pulse Ox 99 11/30/23 17:19 O2 Del Method Room Air 11/30/23 17:19 Course Vital Signs Vital signs: Vital Signs Temperature 98.0 F 11/30/23 17:19 Pulse Rate 88 11/30/23 17:19 Respiratory Rate 18 11/30/23 17:19 Blood Pressure 157/87 H 11/30/23 17:19 Pulse Oximetry 99 11/30/23 17:19 Oxygen Delivery Method Room Air 11/30/23 17:19 Temperature 98.0 F 11/30/23 17:19 Pulse Rate 88 11/30/23 17:19 Respiratory Rate 18 11/30/23 17:19 Blood Pressure 157/87 H 11/30/23 17:19 Pulse Oximetry 99 11/30/23 17:19 Oxygen Delivery Method Room Air 11/30/23 17:19 Medical Decision Making MDM Narrative Medical decision making narrative: Has no abdominal tenderness. Denies alcohol use. 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 Her lab studies will be performed with IV fluid and medication geared towards treating her nausea. Patient thankful. Noted she only got temporary relief today while taking a hot shower. Patient medicated with oral Zofran, IM Phenergan 25 mg and 5 mg IV Valium. Patient given 1 L IV fluid bolus, her initial labs are reviewed, leukocytosis, persistent with her repetitive dry heaving and appears improved from previous visits. We discussed her BUN and creatinine, she be given additional 1 L IV fluids. Patient reports feeling much better sleeping with no further vomiting. She was noted to have slightly low potassium and was given p.o. potassium. She be prescribed nausea medication for her at home and is encouraged not to smoke any marijuana products given her symptoms occurring again after use. Patient verbalized understanding, she did require verbal encouragement to keep her vomiting noise level down upon arrival given disruption to the patient in the room next-door. Patient noted feeling better, resting, able to take 50 mEq p.o. potassium. She was given additional 4 mg IV Zofran and Benadryl 25 mg prior to discharge. Patient states she has Phenergan and Zofran at home. We discussed getting back into the warm shower if symptoms return, avoiding marijuana, returning to the ER if symptoms worsen or new symptoms develop. The patient is to followup with primary care physician in next 2-3 days or to return to the emergency department should any of the signs or symptoms worsen or new symptoms develop. Patient had questions answered. The patient agrees with the following Diagnosis and Treatment plan and the patient will be discharged home. Had elevated Alkphos and calcium encouraged to have her labs repeated with PCP. Lab Data Lab results reviewed: Yes I reviewed the patient's lab results Labs: Lab Results 11/30/23 Range/Units 18:38 WBC 12.6 H (4.0-11.0) 10^3/uL RBC 5.26 (4.20-5.40) 10^6/uL Hgb 15.9 (12.0-16.0) g/dL Hct 47.4 (36.0-48.0) % MCV 90.1 (81.0-99.0) fL MCH 30.2 (26.7-34.0) pg MCHC 33.5 (29.9-35.2) g/dL RDW 12.1 (11.0-15.0) % Plt Count 369 (150-450) 10^3/uL MPV 9.3 L (9.5-13.5) fL Neut % (Auto) 81.4 H (43.0-75.0) % Lymph % (Auto) 11.3 L (20.5-60.0) % [place] % (Auto) 6.7 (1.7-12.0) % Eos % (Auto) 0.1 L (0.9-7.0) % Baso % (Auto) 0.3 (0.2-2.0) % Neut # (Auto) 10.3 H (1.4-6.5) 10^3/uL Lymph # (Auto) 1.4 (1.2-3.8) 10^3/uL [place] # (Auto) 0.9 H (0.3-0.8) 10^3/uL Eos # (Auto) 0.0 (0.0-0.7) 10^3/uL Baso # (Auto) 0.0 (0.0-0.1) 10^3/uL Abs Immat Gran (auto) 0.03 (0.00-0.03) 10^3/uL Imm/Tot Granulo (auto) 0.2 (0.0-0.5) % Sodium 137 (136-145) mmol/L Potassium 3.1 L (3.5-5.1) mmol/L Chloride 97 L (98-107) mmol/L Carbon Dioxide 27.0 (21.0-32.0) mmol/L Anion Gap 16.1 BUN 22.0 H (7.0-18.0) mg/dL Creatinine 1.05 H (0.55-1.02) mg/dL Est GFR ( Amer) >60 (>=60) Est GFR (Non-Af Amer) 54 L (>=60) BUN/Creatinine Ratio 21.0 Glucose 121 H (74-106) mg/dL Calcium 10.5 H (8.5-10.1) mg/dL Total Bilirubin 0.7 (0.2-1.0) mg/dL AST 23 (15-37) U/L ALT 33 (14-59) U/L Alkaline Phosphatase 149 H (46-116) U/L Troponin I High Sens 8.5 (4.0-51.3) pg/mL Total Protein 8.5 H (6.4-8.2) g/dL Albumin 4.2 (3.4-5.0) g/dL Globulin 4.3 g/dL Albumin/Globulin Ratio 1.0 Lipase 40.0 (16.0-77.0) U/L Imaging Data Abdominal x-ray: Radiologist's impression: ITS Impressions Chest/Abdomen X-ray 11/30/23 18:27 IMPRESSION: CHEST X-RAY: No plain film evidence for acute cardiopulmonary disease. ABDOMEN: 1. Nonobstructive bowel gas pattern. 2. Minimal retention of stool. Electronically authenticated by: GUS CAGLE Date: 11/30/2023 19:18 ECG Data Attestation: I personally reviewed and interpreted this ECG as follows: Interpretation: EKG interpretation: Emergency Department physician interpretation, normal sinus rhythm, no ectopy, no ST segment elevation, right axis deviation. . Discharge Plan Discharge Stand Alone Forms: Portal Instructions Chief Complaint: Nausea/Vomiting/Diarrhea Clinical Impression: Nausea & vomiting Patient Disposition: Home, Self-Care Time of Disposition Decision: 20:12 Condition: Good Prescriptions / Home Meds: No Action ondansetron 8 mg tablet,disintegrating 8 mg PO Q8H Qty: 10 0RF levothyroxine 125 mcg tablet 125 mcg PO DAILY Print Language: [place] Instructions: Acute Nausea and Vomiting (ED) Referrals: JAY ZAMBRANO [Primary Care Provider] - As soon as possible Documented by User: Marcos Thompson MD 11/30/23 20:19 HPI HPI - General Adult General Chief complaint: Nausea/Vomiting/Diarrhea Stated complaint: Nausea/Vomiting/Diarrhea Time Seen by Provider: 11/30/23 18:18 Related Data Home Medications ?Medication ?Instructions ?Recorded ?Confirmed levothyroxine 125 mcg tablet 125 mcg PO DAILY 11/30/23 11/30/23 Previous Rx's ?Medication ?Instructions ?Recorded ondansetron 8 mg disintegrating 8 mg PO Q8H #10 tabs 12/25/22 tablet Allergies Allergy/AdvReac Type Severity Reaction Status Date / Time No Known Drug Allergies Allergy Verified 12/25/22 09:04 Opioid HPI Opioid Management Most Recent Opioid Data: Last Pain Scale 8 09/17/23 07:56 Last ED Pain Assessment 11/30/23 18:19 Ur Phencyclidine Scrn Negative (NEGATIVE) 09/17/23 08:22 PFSH PFS Social History Smoking status: Former smoker Exam Constitutional Vital Signs, click to edit/add: Last Vital Signs Temp 98.0 F 11/30/23 17:19 Pulse 88 11/30/23 17:19 Resp 18 11/30/23 17:19 BP 157/87 H 11/30/23 17:19 Pulse Ox 99 11/30/23 17:19 O2 Del Method Room Air 11/30/23 17:19 Course Vital Signs Vital signs: Vital Signs Temperature 98.0 F 11/30/23 17:19 Pulse Rate 88 11/30/23 17:19 Respiratory Rate 18 11/30/23 17:19 Blood Pressure 157/87 H 11/30/23 17:19 Pulse Oximetry 99 11/30/23 17:19 Oxygen Delivery Method Room Air 11/30/23 17:19 Temperature 98.0 F 11/30/23 17:19 Pulse Rate 88 11/30/23 17:19 Respiratory Rate 18 11/30/23 17:19 Blood Pressure 157/87 H 11/30/23 17:19 Pulse Oximetry 99 11/30/23 17:19 Oxygen Delivery Method Room Air 11/30/23 17:19 Medical Decision Making MDM Narrative Medical decision making narrative: Has no abdominal tenderness. Denies alcohol use. 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 Her lab studies will be performed with IV fluid and medication geared towards treating her nausea. Patient thankful. Noted she only got temporary relief today while taking a hot shower. Patient medicated with oral Zofran, IM Phenergan 25 mg and 5 mg IV Valium. Patient given 1 L IV fluid bolus, her initial labs are reviewed, leukocytosis, persistent with her repetitive dry heaving and appears improved from previous visits. We discussed her BUN and creatinine, she be given additional 1 L IV fluids. Patient reports feeling much better sleeping with no further vomiting. She was noted to have slightly low potassium and was given p.o. potassium. She be prescribed nausea medication for her at home and is encouraged not to smoke any marijuana products given her symptoms occurring again after use. Patient verbalized understanding, she did require verbal encouragement to keep her vomiting noise level down upon arrival given disruption to the patient in the room next-door. Patient noted feeling better, resting, able to take 50 mEq p.o. potassium. She was given additional 4 mg IV Zofran and Benadryl 25 mg prior to discharge. Patient states she has Phenergan and Zofran at home. We discussed getting back into the warm shower if symptoms return, avoiding marijuana, returning to the ER if symptoms worsen or new symptoms develop. The patient is to followup with primary care physician in next 2-3 days or to return to the emergency department should any of the signs or symptoms worsen or new symptoms develop. Patient had questions answered. The patient agrees with the following Diagnosis and Treatment plan and the patient will be discharged home. Had elevated Alkphos and calcium encouraged to have her labs repeated with PCP. This patient was seen briefly by Dr Thompson when she initially arrived secondary to her retching, moaning and yelling with her intractable nausea and vomiting And disrupting the emergency room. Patient did this for over 1 hour, I was currently seeing other MVAs from other ambulances that were arriving and other people in the ER. I Saw the patient again and told her that she does not need to come Dr. Romeo in this manner, she is disrupting the emergency room. I gave bladeless apologies on her weight secondary to other more critical patients and higher levels of triage. I told the patient that she does not need to yell, moan, And be excessively disruptive when she is retching she does not need to make all the noises that she is making which is instructing the entire ER, And affecting other patients that are in their rooms with the doors closed. Patient was asked to stop being so histrionic and dramatic, we will be getting her nausea and vomiting medication as soon as we can and take care of the patient in a photo mask cleaner and timely fashion. Patient did apologize to Dr Pay multiple times, And I told her I would have apologized to other patients that have been listening to her for 1 hour disrupt the ER on her behalf. Patient was transition to Dr. Payne at 1910 For final disposition with Surinder Haile physician assistant men's lacrosse coach Lab Data Labs: Lab Results 11/30/23 Range/Units 18:38 WBC 12.6 H (4.0-11.0) 10^3/uL RBC 5.26 (4.20-5.40) 10^6/uL Hgb 15.9 (12.0-16.0) g/dL Hct 47.4 (36.0-48.0) % MCV 90.1 (81.0-99.0) fL MCH 30.2 (26.7-34.0) pg MCHC 33.5 (29.9-35.2) g/dL RDW 12.1 (11.0-15.0) % Plt Count 369 (150-450) 10^3/uL MPV 9.3 L (9.5-13.5) fL Neut % (Auto) 81.4 H (43.0-75.0) % Lymph % (Auto) 11.3 L (20.5-60.0) % [place] % (Auto) 6.7 (1.7-12.0) % Eos % (Auto) 0.1 L (0.9-7.0) % Baso % (Auto) 0.3 (0.2-2.0) % Neut # (Auto) 10.3 H (1.4-6.5) 10^3/uL Lymph # (Auto) 1.4 (1.2-3.8) 10^3/uL [place] # (Auto) 0.9 H (0.3-0.8) 10^3/uL Eos # (Auto) 0.0 (0.0-0.7) 10^3/uL Baso # (Auto) 0.0 (0.0-0.1) 10^3/uL Abs Immat Gran (auto) 0.03 (0.00-0.03) 10^3/uL Imm/Tot Granulo (auto) 0.2 (0.0-0.5) % Sodium 137 (136-145) mmol/L Potassium 3.1 L (3.5-5.1) mmol/L Chloride 97 L (98-107) mmol/L Carbon Dioxide 27.0 (21.0-32.0) mmol/L Anion Gap 16.1 BUN 22.0 H (7.0-18.0) mg/dL Creatinine 1.05 H (0.55-1.02) mg/dL Est GFR ( Amer) >60 (>=60) Est GFR (Non-Af Amer) 54 L (>=60) BUN/Creatinine Ratio 21.0 Glucose 121 H (74-106) mg/dL Calcium 10.5 H (8.5-10.1) mg/dL Total Bilirubin 0.7 (0.2-1.0) mg/dL AST 23 (15-37) U/L ALT 33 (14-59) U/L Alkaline Phosphatase 149 H (46-116) U/L Troponin I High Sens 8.5 (4.0-51.3) pg/mL Total Protein 8.5 H (6.4-8.2) g/dL Albumin 4.2 (3.4-5.0) g/dL Globulin 4.3 g/dL Albumin/Globulin Ratio 1.0 Lipase 40.0 (16.0-77.0) U/L Imaging Data Abdominal x-ray: Radiologist's impression: ITS Impressions Chest/Abdomen X-ray 11/30/23 18:27 IMPRESSION: CHEST X-RAY: No plain film evidence for acute cardiopulmonary disease. ABDOMEN: 1. Nonobstructive bowel gas pattern. 2. Minimal retention of stool. Electronically authenticated by: GUS CAGLE Date: 11/30/2023 19:18 Discharge Plan Discharge Stand Alone Forms: Portal Instructions Chief Complaint: Nausea/Vomiting/Diarrhea Clinical Impression: Nausea & vomiting Patient Disposition: Home, Self-Care Time of Disposition Decision: 20:12 Condition: Good Prescriptions / Home Meds: No Action ondansetron 8 mg tablet,disintegrating 8 mg PO Q8H Qty: 10 0RF levothyroxine 125 mcg tablet 125 mcg PO DAILY Print Language: [place] Instructions: Acute Nausea and Vomiting (ED) Referrals: JAY ZAMBRANO [Primary Care Provider] - As soon as possible
--- NOTE | 2023-11-30 18:27 | XR_ITS ---
The [address] [address] Patient Name: GILLIAN ISABEL MRN: [id number] date: 1965 Sex: F Assigned Patient Location: ER Current Patient Location: ER Accession/Order Number: [id number] Exam Date: 11/30/2023 18:40 Report Date: 11/30/2023 19:18 At the request of: CHERISE SCHREIBER Procedure: XR acute abdomen series EXAM: ACUTE ABDOMINAL SERIES HISTORY: Abdominal pain TECHNIQUE: A single view of the chest and 3 views of the abdomen and pelvis are submitted for review. COMPARISON: None. FINDINGS: CHEST X-RAY: The lungs are hyper expanded. There is no acute infiltrate. There is no evidence for effusion. The cardiomediastinal silhouette measures within normal limits. Pulmonary vascularity is unremarkable. Osseous structures are within normal limits for age. ABDOMEN: Non obstructive bowel gas pattern. Clips seen in the right upper quadrant. There are no abnormal calcifications. However, evaluation of the renal shadows is limited due to overlying bowel gas. No portal venous air. Osseous structures appear within normal limits for age. XR/XR acute abdomen series IMPRESSION: CHEST X-RAY: No plain film evidence for acute cardiopulmonary disease. ABDOMEN: 1. Nonobstructive bowel gas pattern. 2. Minimal retention of stool. Electronically authenticated by: GSU CAGLE Date: 11/30/2023 19:18
--- NOTE | 2023-11-30 18:28 | ECG_ITS ---
The [facility] Test Date: 2023-11-30 Pat Name: GILLIAN ISABEL Department: Room: - Gender: Female Head Of History: : 1965 Requested By: JAY ZAMBRANO Order Number: [id number] Reading MD: JOSE HINOJOSA Measurements Intervals [place] Rate: 74 P: 83 HI: 122 QRS: 94 QRSD: 74 T: 82 QT: 400 QTc: 428 Interpretive Statements 1100 Sinus rhythm 7102 Moderate right axis deviation 9110 normal ECG Compared to ECG 09/17/2023 08:15:28 No significant changes Electronically Signed On 12-01-2023 12:10:52 EDT by JOSE HINOJOSA
[2023-11-30 18:43] LABS: Basophils Percent Auto 0.3 % (0.2-2.0); Eosinophils Percent Auto 0.1 % (0.9-7.0); Hematocrit 47.4 % (36.0-48.0); Hemoglobin 15.9 g/dL (12.0-16.0); Immature Granulocytes Abs Auto 0.03 10^3/uL (0.00-0.03); Immature Granulocytes Pct Auto 0.2 % (0.0-0.5); Lymphocytes Absolute Auto 1.4 10^3/uL (1.2-3.8); Lymphocytes Percent Auto 11.3 % (20.5-60.0); Mean Corpuscular HGB Conc 33.5 g/dL (29.9-35.2); Mean Corpuscular Hemoglobin 30.2 pg (26.7-34.0); Mean Corpuscular Volume 90.1 fL (81.0-99.0); Mean Platelet Volume 9.3 fL (9.5-13.5); Monocytes Absolute Auto 0.9 10^3/uL (0.3-0.8); Monocytes Percent Auto 6.7 % (1.7-12.0); Neutrophils Absolute Auto 10.3 10^3/uL (1.4-6.5); Neutrophils Percent Auto 81.4 % (43.0-75.0); Platelet Count 369 10^3/uL (150-450); Red Blood Count 5.26 10^6/uL (4.20-5.40); Red Cell Distribution Width 12.1 % (11.0-15.0); White Blood Count 12.6 10^3/uL (4.0-11.0)
[2023-11-30] MEDS: PROMETHAZINE HCL 25 MG/ML VIAL IV (18:50)
[2023-11-30] MEDS: ONDANSETRON 4 MG RAPDIS TABLET PO (18:50)
[2023-11-30] MEDS: DIAZEPAM 10 MG/2 ML SYRINGE 5 MG IV (18:50)
[2023-11-30] MEDS: 0.9 % SODIUM CHLORIDE 1,000 ML 999 ML IV ×2 (18:50→19:49)
[2023-11-30 18:58] LABS: Alanine Aminotransferase 33 U/L (14-59); Albumin Level 4.2 g/dL (3.4-5.0); Alkaline Phosphatase 149 U/L (46-116); Anion Gap 16.1; Aspartate Amino Transferase 23 U/L (15-37); Bilirubin Total 0.7 mg/dL (0.2-1.0); Calcium 10.5 mg/dL (8.5-10.1); Chloride 97 mmol/L (98-107); Estimated GFR (African America >60 (>=60); Estimated GFR (Non-African Ame 54 (>=60); Globulin 4.3 g/dL; Glucose 121 mg/dL (74-106); Potassium 3.1 mmol/L (3.5-5.1); Sodium 137 mmol/L (136-145); Total Protein 8.5 g/dL (6.4-8.2)
[2023-11-30 19:01] LABS: Troponin I High Sensitivity 8.5 pg/mL (4.0-51.3)
[2023-11-30] MEDS: POTASSIUM BICARBONATE/CIT 25 MEQ TABLET EFF 50 MEQ PO (19:49)
[2023-11-30] MEDS: DIPHENHYDRAMINE HCL 50 MG/ML (1ML) VIAL 25 MG IV (20:15)
[2023-11-30] MEDS: ONDANSETRON PF 4 MG/2 ML VIAL IV (20:15)
[2023-11-30 20:27] VITALS: BP 140/86; PULSE 83; O2SAT 100
== END 2023-11-30 20:30 | disposition home or self-care (01) ==
PROVIDERS: Personal Emergency Response Attendant; Emergency Provider Emergency Medicine; PCP Family Medicine
DX: R11.2 Nausea with vomiting, unspecified (principal); F12.90 Cannabis use, unspecified, uncomplicated; Z79.890 Hormone replacement therapy; Z87.891 Personal history of nicotine dependence
CPT/HCPCS: 36415; 74022; 80053; 83690; 84484; 85025; 93005; 99285

== ENCOUNTER 2023-12-12 09:52 | Outpatient (OUT) | payer OTHER, SELFPAY ==
--- NOTE | 2023-12-12 09:55 | MM_ITS ---
Patient Name: GILLIAN ISABEL MR#: [id number] : 1965 Exam Date: 12/12/2023 Ordering Doctor: DR AV BAUGH RADIOLOGY REPORT PROCEDURE: MM TOMOSYNTHESIS SCREENING BI COMPARISON: MG MAMM SCREEN SAMIR W CAD, 03/21/2019. MG MAMM SCREEN 3D SAMIR CAD, 06/27/2022. INDICATIONS: Screening Calculator Name NCI Breast Cancer Risk Assessment Tool 5 Year Breast Cancer Risk 2.60% Lifetime Breast Cancer Risk 14.20% Personal Breast Cancer No Personal Ovarian Cancer No Treatments None Family Cancers Mother with breast cancer at age ~65; Father with prostate cancer at age ~68. LOCATION: [facility] BREAST COMPOSITION: There are scattered areas of fibroglandular density. FINDINGS: DIAGNOSTIC CATEGORY 2--BENIGN FINDING. NO CHANGE FROM COMPARISON. Scattered benign-appearing calcifications are present. Scattered benign-appearing lymph nodes are present. RIGHT BREAST: No significant suspicious finding. LEFT BREAST: No significant suspicious finding. RECOMMENDATIONS: ROUTINE MAMMOGRAM AND CLINICAL EVALUATION IN 12 MONTHS. PLEASE NOTE: A NORMAL MAMMOGRAM DOES NOT EXCLUDE THE POSSIBILITY OF BREAST CANCER. A CLINICALLY SUSPICIOUS PALPABLE LUMP SHOULD BE BIOPSIED. Dictated by: Stan Hollingsworth MD on 12/12/2023 at 13:06 Approved by: Stan Hollingsworth MD on 12/12/2023 at 13:07
--- OUTSIDE RECORDS SUMMARY | 2023-12-12 10:04 | XMS_ITS ---
Patient Summarization (C-CDA 2.1 CCD) Created on: December 12, 2023 GILLIAN ISABEL~MAAME FRENCH : 1965 Sex: Female Author Organization Sample organization Care Team Providers Care Nurse Receptionist Name Role Phone JUAN MANUEL, DR THOMPSON Consulting Unavailable JUAN MANUEL, DR THOMPSON Attending Unavailable JUAN MANUEL, DR THOMPSON Admitting Unavailable JUAN MANUEL, DR THOMPSON Primary Care Unavailable ZIEBER, DR RICKY Alejandro Consulting Unavailable JUAN MANUEL, JAY Otero Attending Unavailable HEMMER, AV Otero Attending Unavailable Encounters Encounter Date Encounter Type Care Provider Facility Start: 12-06-2023 End: 12-06-2023 ambulatory AV CORBIN Not Available Start: 09-27-2023 End: 09-27-2023 ambulatory JAY ZAMBRANO Not Available Start: 06-27-2022 End: 06-28-[address] JAY ZAMBRANO Facility: Payers Date Payer Category Payer Unknown [id number] 1965 Unknown [id number] 1965 Unknown [id number] 1965 Unknown [id number] 1959 Unknown [id number] Problems Problem Classification Problem Date Documented Da [...] : DR JAY ZAMBRANO M.D. Admission #: [id number] Family : Order #: [id number] CLICK HERE TO VIEW EXAM RADIOLOGY REPORT [...] at age 68. LOCATION: [facility] BREAST COMPOSITION: Scattered areas fibroglandular density. [...] M.D. on 06/27/2022 at 15:19 Normal [facility] Summary Purpose Family History No Family History Records FoundNo Family History Records Found Advance Directives No Advanced Directives Records FoundNo Advanced Directives Records Found Additional Source Comments INFORMATION SOURCE (unrecogn ized section and content) DATE CREATED AUTHOR 09/16/2022 [facility] DATE CREATED AUTHOR AUTHOR'S ORGANIZ ATION 12/08/2023 [facility] EPIC FOR RECORDS PERTAINING TO PATIENTS WHO ARE [...] BE BASED ON THE PRIMARY CLINICAL RECORDS. [facility]. provides no warranty or guarantee of the accuracy or completeness of information in this document.
== END 2023-12-12 09:53 | disposition home or self-care (01) ==
LOC: MAMMO 09:52
PROVIDERS: PCP Family Medicine; Visit Provider Physician Assistant
DX: Z12.31 Encounter for screening mammogram for malignant neoplasm of breast (principal); Z80.3 Family history of malignant neoplasm of breast; Z80.42 Family history of malignant neoplasm of prostate
CPT/HCPCS: 77063; 77067

== ENCOUNTER 2025-01-08 10:12 | Outpatient (OUT) | payer OTHER, SELFPAY ==
--- OUTSIDE RECORDS SUMMARY | 2020-02-13 12:01 | XMS_ITS | Continuity of Care Document ---
Author Organization [facility] Address [address] [place] [address] Phone Care Team Providers Care Career Manager Name Role Phone Brandon Rawls Unavailable Unavailab le Procedures Procedure Date Covid Testing [facility] Advance Directives Directive Yes / No Effective Date File Name No Information Encounters Encounter Description Practice Location Reason(s) For Visit Diagnoses Date Provider Providers Copied on Encounter [facility], [address] [place] [address], [id number], [place] tel:[phone] [facility] No Information Lester Taylor. [address], [place], [id number], [place]. tel:[phone] [facility], [address], [place], [id number], [place] tel:[phone] COVID [facility] Encounter for screening for other viral diseases Danii DO Dima. [address], [place], [id number], [place]. tel:[phone] Family History Family Member Type Diagnosis Age At Onset No Information Payers Payer name Insurance type Covered green party ID Authoriza tion(s) Medical [employer] [id number] Social History Type Description Quantity Date Captured Comments Alcohol Use Details Unknown Caffeine Use Details Unknown Tobacco Use Status No Information Smoking Status No Information Sex Female Sexual Orientation Straight or heterosexual Gender Identity Female Chief Complaint And Reason For Visit No Information Reason For Referral Reason For Referral No Information History Of Present Illness Encounter Date Complaint History Of Prese nt Illness No Information Functional Status Date Functional Assessmen t No Information Instructions Date Instruction Additional Infor mation No Information Assessments Type Assessment Date No Information Patient Care Teams Name Effective Dates (start - stop) Status Members No Information
--- NOTE | 2025-01-08 10:15 | MM_ITS ---
Patient Name: GILLIAN ISABEL MR#: [id number] : 1965 Exam Date: 01/08/2025 Ordering Doctor: DR JAY ZAMBRANO M.D. RADIOLOGY REPORT PROCEDURE: MM TOMOSYNTHESIS SCREENING BI COMPARISON: MM TOMOSYNTHESIS SCREENING BI, 12/12/2023. MG MAMM SCREEN 3D SAMIR CAD, 06/27/2022. MG MAMM SCREEN SAMIR W CAD, 03/21/2019. MG MAMM SAMIR SCRN W CAD DIG, 12/25/2012. INDICATIONS: Screening Calculator Name NCI Breast Cancer Risk Assessment Tool 5 Year Breast Cancer Risk 2.70% Lifetime Breast Cancer Risk 13.90% Personal Breast Cancer No Personal Ovarian Cancer No Treatments None Family Cancers Mother with breast cancer at age ~65; Father with prostate cancer at age ~68. LOCATION: [facility] BREAST COMPOSITION: There are scattered areas of fibroglandular density. FINDINGS: RIGHT BREAST: No significant suspicious finding. Benign-appearing calcifications are present. Benign-appearing lymph nodes are present. LEFT BREAST: No significant suspicious finding. Benign-appearing calcifications are present. Benign-appearing lymph nodes are present. DIAGNOSTIC CATEGORY 2--BENIGN FINDING: RECOMMENDATIONS: ROUTINE MAMMOGRAM AND CLINICAL EVALUATION IN 12 MONTHS. PLEASE NOTE: A NORMAL MAMMOGRAM DOES NOT EXCLUDE THE POSSIBILITY OF BREAST CANCER. A CLINICALLY SUSPICIOUS PALPABLE LUMP SHOULD BE BIOPSIED. Dictated by: Reece Conley MD on 01/08/2025 at 14:11 Approved by: Reece Conley MD on 01/08/2025 at 14:13
--- OUTSIDE RECORDS SUMMARY | 2025-01-08 10:15 | XMS_ITS | Encounter Summary ---
Author Organization [facility] Address [address] [place] [address] Care Team Providers Care Sail Maker Name Role Phone Kathy Garcia MD Primary Care Provider [phone] Encounter Details Date Type Department Care Team (Late st Contact Info) Description 12/26/2022 Orders Only [facility] [address] [place] [id number] Kathy Garcia MD [address] [place] [address] Social History Tobacco Use Types Packs/Day Years Used Date Smoking Tobacco: Never Assessed Comments Unknown Sex and Gender Information Value Date Recorded Sex Assigned at Not on file Legal Sex Female 7:20 PM EDT Gender Identity Not on file Sexual Orientation Not on file documented as of this encounter Plan of Treatment Not on file documented as of this encounter Procedures Procedure Name Priority Date/Time Associated Diagnosis Comments ELECTROCARDIOGRAM REPORT Routine 023 8:[address] ABDOMEN & PELVIS WO Routine 3 8:[address] HEAD/BRAIN W & WO CONTRAST Routine 12/25/2022 8:[address] BRAIN ATTACK HEAD WO CONTRAST Routine 12/25/2022 8:02 AM EDT documented in this encounter Results * Electrocardiogram Report (12/25/2022 8:37 AM EDT) us Kathy Garcia MD IN CLINIC/BEDSIDE ORDERABLES Fin al Result * CT ABDOMEN & PELVIS WO (12/25/2022 8:18 AM EDT) Anatomical Region Laterality Modality Radiographic [place] ging Kathy Garcia MD IMG XR PROCEDURES Final Result * CT HEAD/BRAIN W & WO CONTRAST (12/25/2022 8:02 AM EDT) Anatomical Region Laterality Modality Radiographic [place] ging Kathy Garcia MD IMG XR PROCEDURES Final Result * CT BRAIN ATTACK HEAD WO CONTRAST (12/25/2022 8:02 AM EDT) Anatomical Region Laterality Modality Other Kathy Garcia MD [facility] Final Result documented in this encounter Visit Diagnoses Not on filedocumented in this encounter Care Teams Sail Maker Relationship Specialty Start Date End Date Kathy Garcia MD [address] [place] [address] PCP - General Family Medicine 11/21/22 documented as of this encounter
--- OUTSIDE RECORDS SUMMARY | 2025-01-08 10:15 | XMS_ITS | Encounter Summary ---
Author Organization [facility] Address [address] [facility] [place] [address] Care Team Providers Care High Risk Case Manager Name Role Phone Kathy Garcia MD Primary Care Provider [phone] Encounter Details Date Type Department Care Team (Late st Contact Info) Description 08/04/2024 Abstract [facility] [address] [facility] [address] [place] [address] Kathy Garcia MD [address] [place] [address] [place] [address] Social History Tobacco Use Types Packs/Day Years Used Date Smoking Tobacco: Every Day Cigarettes Smokeless Tobacco: Never Comments:5 or less cigarette s a day Alcohol Use Standard Drinks/Week Comments Yes 0 (1 standard drink = 0.6 oz pure alcohol) Points: 2, Interpretation: Negative; Caffeine Intake: 1-2 cups per day soda Comments Unknown Sex and Gender Information Value Date Recorded Sex Assigned at Not on file Legal Sex Female 7:20 PM EDT Gender Identity Not on file Sexual Orientation Not on file documented as of this encounter Plan of Treatment Not on file documented as of this encounter Visit Diagnoses Not on filedocumented in this encounter Care Teams High Risk Case Manager Relationship Specialty Start Date End Date Kathy Garcia MD [address] [facility] 110 [place] [address] PCP - General Family Medicine 11/21/22 documented as of this encounter
--- OUTSIDE RECORDS SUMMARY | 2025-01-08 10:15 | XMS_ITS | Encounter Summary ---
Author Organization [facility] Address [address] [place] [address] Care Team Providers Care Block Greaser Name Role Phone Kathy Garcia MD Primary Care Provider [phone] Encounter Details Date Type Department Care Team (Late st Contact Info) Description 12/13/2023 Orders Only [facility] [address] [place] [address] Unallocated, Noms Provider, [address] [place] [address] Social History Tobacco Use Types Packs/Day Years [...] Procedure Name Priority Date/Time Associated Diagnosis Comments MAMMOGRAM* Routine 12/12/2023 8:19 AM EDT documented in this encounter Results * MAMMOGRAM* (12/12/2023 8:19 AM EDT) Anatomical Region Laterality Modality Radiographic Ely ging us Noms Provider Unallocated IMG XR PROCEDURES F inal Result documented in this encounter Visit Diagnoses Not on filedocumented in this encounter Care Teams Block Greaser Relationship Specialty Start Date End Date Kathy Garcia MD [address] [facility] 110 [place] [address] PCP - General Family Medicine 11/21/22 documented as of this encounter
--- OUTSIDE RECORDS SUMMARY | 2025-01-08 10:15 | XMS_ITS | Encounter Summary ---
Author Organization [facility] Address [address] [facility] [place] [address] Care Team Providers Care Cnc Mill Programmer Name Role Phone Kathy Garcia MD Primary Care Provider [phone] Encounter Details Date Type Department Care Team (Late st Contact Info) Description 12/04/2023 Orders Only [facility] [address] [place] [address] Unallocated, Noms Provider, [address] [place] [address] Social History Tobacco Use Types Packs/Day Years Used Date Smoking Tobacco: Every Day Cigarettes Comments:5 or less cigarette s a day [...] Date/Time Associated Diagnosis Comments ELECTROCARDIOGRAM REPORT Routine 024 8:15 AM EDT documented in this encounter Results * Electrocardiogram Report (11/30/2023 8:15 AM EDT) us Noms Provider Unallocated MD IN CLINIC/BEDSIDE O RDERABLES Final Result documented in this encounter Visit Diagnoses Not on filedocumented in this encounter Care Teams Cnc Mill Programmer Relationship Specialty Start Date End Date Kathy Garcia MD [address] [facility] 110 [place] [address] PCP - General Family Medicine 11/21/22 documented as of this encounter
--- OUTSIDE RECORDS SUMMARY | 2025-01-08 10:15 | XMS_ITS | Clinical Summary ---
Author Organization [facility] Address [address] [place] [address] Care Team Providers Care Shop Firer/Fireman Name Role Phone Kathy Zambrano MD Primary Care Provider [phone] Allergies Active Allergy Reactions Criticality Noted Date Comments Amoxicillin-Pot Clavulanate 09/27/19 24 Other Reaction(s): hives Medications promethazine (Phenergan) 50 MG tablet Take 50 mg by mouth Daily as needed for nausea or vomiting Active docusate sodium (Colace) 100 MG capsule Take 100 mg by mouth in the morning and 100 mg before bedtime. Active buPROPion SR (Wellbutrin SR) 150 MG 12 hr tabletIndicatio ns:Tobacco abuse TAKE 1 TABLET BY MOUTH IN THE MORNING AND BEFORE BEDTIME *DO NOT CRUSH/CHEW/S PLIT* 180 tablet 08/18/19 25 Active ALPRAZolam (Xanax) 0.5 MG tabletIndicatio ns:Anxiety Take 1 tablet (0.5 mg) by mouth in the morning and 1 tablet (0.5 mg) before bedtime. 60 tablet 12/19/19 25 025 Active Brexpiprazole (Rexulti) 1 MG tabletIndicatio ns:Bipolar disorder, current episode mixed, moderate (HCC),Anxiety Take 1 mg by mouth Daily 30 tablet 6 12/24/19 25 Active levothyroxine (Synthroid, Levoxyl) 125 MCG tabletIndicatio ns:Hypothyroidi sm, unspecified type TAKE 1 TABLET BY MOUTH ONCE DAILY AT THE SAME TIME 100 tablet 3 12/24/19 25 Active levothyroxine (Synthroid, Levoxyl) 125 MCG tabletIndicatio ns:Hypothyroidi sm, unspecified type TAKE 1 TABLET BY MOUTH ONCE DAILY AT THE SAME TIME 90 tablet 1 06/25/20 24 025 Discontinued ALPRAZolam (Xanax) 0.5 MG tabletIndicatio ns:Anxiety Take 1 tablet (0.5 mg) by mouth in the morning and 1 tablet (0.5 mg) before bedtime. 60 tablet 08/04/19 25 025 Discontinued(Re order) Brexpiprazole (Rexulti) 0.5 MG tabletIndicatio ns:Anxiety,Bipo lar disorder, current episode mixed, moderate (HCC) Take 1 mg by mouth Daily 60 tablet 08/04/19 25 025 Discontinued(Re order) Brexpiprazole (Rexulti) 0.5 MG tabletIndicatio ns:Anxiety,Bipo lar disorder, current episode mixed, moderate (HCC) Take 1 mg by mouth Daily 60 tablet 12/19/19 25 025 Discontinued(Re order) Brexpiprazole (Rexulti) 0.5 MG tabletIndicatio ns:Anxiety,Bipo lar disorder, current episode mixed, moderate (HCC) Take 1 mg by mouth Daily 60 tablet 12/24/19 25 025 Discontinued(Ot her) Active Problems Problem Noted Date Diagnosed Date Hypokalemia due to loss of potassium 07/01/2024 Sludge in gallbladder 07/01/2024 Bipolar disorder, current episode mixed, moderat e 07/01/2024 Assessment & Plan (08/04/2024 9:34 AM EST): Tolerating medicine and doing well Script called in Marijuana use 12/06/2023 Anxiety 09/27/2023 Assessment & Plan (08/04/2024 9:34 AM EST): Patient's Medicine is effective at controlling symptoms at current dose and frequency. PDMP reviewed with no evidence of overuse and abuse D/W patient to avoid use of benzodiazepines when consuming alcohol Advised against operating heavy machinery and driving long distances while on medicines. Assessment & Plan (07/01/2024 11:04 AM EST): Patient's Medicine is effective at controlling symptoms at current dose and frequency. PDMP reviewed with no evidence of overuse and abuse D/W patient to avoid use of benzodiazepines when consuming alcohol Advised against operating heavy machinery and driving long distances while on medicines. Essential hypertension, benign 09/27/2023 Hypothyroidism 09/27/2023 Insomnia 09/27/2023 Palpitations 09/27/2023 Smoker 09/27/2023 Tuberculosis of skin and subcutaneous tissue Nausea and vomiting 09/27/2023 Assessment & Plan (09/27/2023 2:55 PM EDT): Resolved Leukocytosis 09/27/2023 Assessment & Plan (09/27/2023 2:57 PM EDT): Probably acute phase reactant Will recheck CBC Malignant neoplasm of skin 05/02/2010 Tachycardia, unspecified 05/02/2010 Resolved Problems Problem Noted Date Diagnosed Date Resolved Date Calculus of gallbladder with acute on chronic cholecystitis without obstruction 09/27/20232023 Viral gastroenteritis 09/27/20232023 Assessment & Plan (09/27/2023 2:55 PM EDT): Increase fluids Gatorade/Powerade/Pedialyte Avoid Milk and Juices Tylenol for any Abdominal Pain Watch for Dehydration Clear liquids to a BRAT diet Banana Rice Applesauce [place] F/U if NB If Worsens go to ER for IV hydration Encounters Date Type Department Care Team Description 12/23/2024 Refill [facility] [address] [facility] [address] [place] [phone] Gilda Stack PA Hypothyroidism, unspecified type 12/23/2024 Telephone [facility] [address] [facility] 110 [place] [address] Kathy Zambrano MD 12/23/2024 Orders Only [facility] [address] [place] [address] [place] [address] Ilana Moran NP Anxiety; Bipolar disorder, current episode mixed, moderate (HCC) 12/22/2024 Telephone [facility] [address] [facility] [address] [place] [address] Larissa Hickey LPN 12/19/2024 Telephone [facility] [address] [facility] [address] [place] [address] Gilda Stack PA 12/18/2024 1:00 PM EDT Office Visit [facility] [address] [facility] [address] [place] [address] Ilana Moran, ANDRESSA Anxiety (Primary Dx); Bipolar disorder, current episode mixed, moderate (HCC); Hypothyroidism, unspecified type 12/18/2024 Telephone [facility] [address] [facility] [address] [place] [address] Ilana Moran, ANDRESSA 12/18/2024 Bamboo flowsheet [facility] [address] [facility] [address] [place] [address] Ilana Moran, ANDRESSA 12/18/2024 Travel 11/11/2024 Refill [facility] [address] [facility] [address] [place] [address] Tiffanie Benítez LPN from Last 3 Months Immunizations Immunization Administration Dates Next Due Novel [id number], nasal 05/12/2009 Family History Medical History Relation Name Comments Heart disease Father Prostate cancer Father Breast cancer Mother Heart disease Mother Rheum arthritis Sister 1 Emergency Hysterectomy Tumor Sister 2 Relation Name Status Comments Father Mother Sister 1 Sister 2 Social History Tobacco Use Types Packs/Day Years Used Date Smoking Tobacco: Every Day Cigarettes Smokeless Tobacco: Never Tobacco Cessation:Ready to Q uit: Not Asked; Counseling Given: Yes Comments:5 or less cigarettes a day Alcohol Use Standard Drinks/Week Comments Yes 0 (1 standard drink = 0.6 oz pure alcohol) Points: 2, Interpretation: Negative; Caffeine Intake: 1-2 cups per day soda PHQ-2 Answer Date Recorded Patient Health Questionnaire-2 Score 1 12/18/2024 Comments Unknown Sex and Gender Information Value Date Recorded Sex Assigned at Not on file Legal Sex Female 7:20 PM EDT Gender Identity Not on file Sexual Orientation Not on file Last Filed Vital Signs Vital Sign Reading Time Taken Comments Blood Pressure 112/82 12/18/2024 1:05 PM EDT Pulse 77 12/18/2024 1:05 PM EDT Temperature 37.1 C (98.8 F) 12/06/2023 8:59 AM EDT Respiratory Rate 16 12/18/2024 1:05 PM EDT Oxygen Saturation 98% 12/18/2024 1:05 PM EDT Inhaled Oxygen Concentration - - Weight 71.2 kg (157 lb) 12/18/2024 1:05 PM EDT Height 160 cm (5' 3 ) 12/18/2024 1:05 PM EDT Body Mass Index 27.81 12/18/2024 1:05 PM EDT Plan of Treatment Health Maintenance Due Date Last Done Comments CT Colonography 1965 FIT-DNA 1965 FIT 1965 FOBT 1965 Sigmoidoscopy 1965 Pap Smear 1986 Cervical Cancer Screening 1995 HPV/Cotest 1995 Mammogram 12/11/2024 12/12/2023, 11/14, 06/27/2022, Additional history exists Influenza Vaccine (Season Ended) 2025 Colonoscopy 03/12/2027 03/12/2017 Colorectal Cancer Screening 03/12/2027 Procedures Procedure Name Priority Date/Time Associated Diagnosis Comments TSH W/REFLEX TO FT4 Routine 12/18/2024 1 :27 PM EDT Hypothyroidism, unspecified type MM TOMOSYNTHESIS SCREENING BI 12/12/2023 1:07 PM EDT COLONOSCOPY Routine 03/12/2017 12:00 PM EDT from Last 3 Months or Most Recently Relevant to Health Maintenance Results * TSH W/REFLEX TO FT4 (12/18/2024 1:27 PM EDT) TSH W/REFLEX TO FT4 1.11 0.40 - 4.50 mIU/L [facility] 12/18/2024 1:27 PM EDT 12/18/2024 1:30 PM EDT Narrative [facility] - 12/19/2024 7:55 AM EDT FASTING:NO FASTING: NO Resulting Agency Comment Performing Organization Information Site ID: QPT Name: [facility] Address: [address] [facility], [address] [place] [address] Director: Earl Waddell MD Ilana Moran PEWTER FABRICATOR LAB BLOOD ORDERABLES Final R esult [facility] * MM TOMOSYNTHESIS SCREENING BI (12/12/2023 1:07 PM EDT) Anatomical Region Laterality Modality Other 12/12/2023 1:07 PM EDT Narrative 12/12/2023 1:08 [place] [address] Mammography Report Signed Patient: CUCA NOGUERA MR#: [id number] : 1965 Acct:[id number] Age/Sex: 58 / F ADM Date: 12/12/23 Loc: MAMMO Attending Dr: GILDA STACK Ordering Physician: GILDA STACK Results: Date of Service: 12/12/23 Follow Up: Procedure(s): MM tomosynthesis screening BI Accession Number(s): [id number] cc: KATHY ZAMBRANO ; GILDA STACK Patient Name: CUCA NOGUERA MR#: [id number] : 1965 Exam Date: 12/12/2023 Ordering Doctor: DR GILDA BAGUH RADIOLOGY REPORT PROCEDURE: MM TOMOSYNTHESIS SCREENING BI COMPARISON: MG MAMM SCREEN SAMIR W CAD, 03/21/2019. MG MAMM SCREEN 3D SAMIR CAD, 06/27/2022. INDICATIONS: Screening Calculator Name NCI Breast Cancer Risk Assessment Tool 5 Year Breast Cancer Risk 2.60% Lifetime Breast Cancer Risk 14.20% Personal Breast Cancer No Personal Ovarian Cancer No Treatments None Family Cancers Mother with breast cancer at age 65; Father with prostate cancer at age 68. LOCATION: [facility] BREAST COMPOSITION: There are scattered areas of fibroglandular density. FINDINGS: DIAGNOSTIC CATEGORY 2--BENIGN FINDING. NO CHANGE FROM COMPARISON. Scattered benign-appearing calcifications are present. Scattered benign-appearing lymph nodes are present. RIGHT BREAST: No significant suspicious finding. LEFT BREAST: No significant suspicious finding. RECOMMENDATIONS: ROUTINE MAMMOGRAM AND CLINICAL EVALUATION IN 12 MONTHS. PLEASE NOTE: A NORMAL MAMMOGRAM DOES NOT EXCLUDE THE POSSIBILITY OF BREAST CANCER. A CLINICALLY SUSPICIOUS PALPABLE LUMP SHOULD BE BIOPSIED. Dictated by: Stan Hollingsworth MD on 12/12/2023 at 13:06 Approved by: Stan Hollingsworth MD on 12/12/2023 at 13:07 Dictated By: Stan Hollingsworth M.D. Signed By: 12/12/23 1308 DD/ 1307 TD/TT: Repair Miller: Procedure Note Radiology, Radiologist, MD - 12/12/2023 [place] [address] Mammography Report Signed Patient: CUCA NOGUERA EMR#: [id number] : 1965Acct:[id number] Age/Sex: 58 / FADM Date: 12/12/23 Loc: MAMMO Attending Dr: GILDA STACK Ordering Physician: GILDA STACK MResults: Date of Service: 12/12/23Follow Up: Procedure(s): MM tomosynthesis screening BI Accession Number(s): [id number] cc: KATHY ZAMBRANO ; GILDA STACK Patient Name: CUCA NOGUERA MR#: [id number] : 1965 Exam Date: 12/12/2023 Ordering Doctor: DR GILDA STACK PA RADIOLOGY REPORT PROCEDURE: MM TOMOSYNTHESIS SCREENING BI COMPARISON: MG MAMM SCREEN SAMIR W CAD, 03/21/2019. MG MAMM SCREEN 3DBIL CAD, 06/27/2022. INDICATIONS: Screening Calculator Name NCI Breast Cancer Risk Assessment Tool 5 Year Breast Cancer Risk 2.60% Lifetime Breast Cancer Risk 14.20% Personal Breast Cancer No Personal Ovarian Cancer No Treatments None Family Cancers Mother with breast cancer at age 65; Father with prostate cancer at age 68. LOCATION: [facility] BREAST COMPOSITION: There are scattered areas of fibroglandulardensity. FINDINGS: DIAGNOSTIC CATEGORY 2--BENIGN FINDING. NO CHANGE FROM COMPARISON. Scattered benign-appearing calcifications are present. Scattered benign-appearing lymph nodes are present. RIGHT BREAST: No significant suspicious finding. LEFT BREAST: No significant suspicious finding. RECOMMENDATIONS: ROUTINE MAMMOGRAM AND CLINICAL EVALUATION IN 12 MONTHS. PLEASE NOTE: A NORMAL MAMMOGRAM DOES NOT EXCLUDE THE POSSIBILITY OFBREAST CANCER. A CLINICALLY SUSPICIOUS PALPABLE LUMP SHOULD BE BIOPSIED. Dictated by: Stan Hollingsworth MD on 12/12/2023 at 13:06 Approved by: Stan Hollingsworth MD on 12/12/2023 at 13:07 Dictated By: Stan Hollingsworth M.D. Signed By:12/12/23 1308 DD/ 1307 TD/TT: Repair Miller: Gilda Stack PA [facility] Final Result * Colonoscopy (03/12/2017 12:00 PM EDT) Anatomical Region Laterality Modality Endoscopy 03/12/2017 12:0 0 PM EDT Narrative 03/12/2017 12:00 PM EDT PERFORMED AT [facility] LOCATION:[id number] spastic colon Procedure Note CONVERSION, GENERIC - 11/30/2022 PERFORMED AT [facility] LOCATION:[id number] spastic colon Kathy Zambrano MD ENDOSCOPY PROCEDURE ORDERABLES F inal Result from Last 3 Months or Most Recently Relevant to Health Maintenance Insurance [employer] Care Teams Shop Firer/Fireman Relationship Specialty Start Date End Date Kathy Zambrano MD [address] [address] PCP - General Family Medicine 11/21/22
--- OUTSIDE RECORDS SUMMARY | 2025-01-08 10:15 | XMS_ITS | Encounter Summary ---
Author Organization [facility] Address [address] [facility] [place] [address] Care Team Providers Care Chocolate Finisher Name Role Phone Kathy Garcia MD Primary Care Provider [phone] Encounter Details Date Type Department Care Team (Late st Contact Info) Description 12/05/2023 Abstract [facility] [address] [facility] 110 [place] [address] Kathy Garcia MD [address] [facility] 110 [place] [address] Social History Tobacco Use Types Packs/Day Years [...] on filedocumented in this encounter Care Teams Chocolate Finisher Relationship Specialty Start Date End Date Kathy Garcia MD [address] [facility] 110 [place] [address] PCP - General Family Medicine 11/21/22 documented as of this encounter
--- OUTSIDE RECORDS SUMMARY | 2025-01-08 10:15 | XMS_ITS | Encounter Summary ---
Author Organization [facility] Address [address] [facility] [place] [address] Care Team Providers Care Teacher Education Instructor Name Role Phone Kathy Garcia MD Primary Care Provider [phone] Encounter Details Date Type Department Care Team (Late st Contact Info) Description 12/22/2024 Telephone [facility] [address] [place] [address] Larissa Hickey LPN [address] [place], [place] [id number] Social History Tobacco Use Types Packs/Day Years [...] on file documented as of this encounter Miscellaneous Notes * Telephone Encounter - Larissa Hickey LPN - 12/22/2024 10:44 AM EDT Received VM from Paul at [facility] that they received a script for Rexulti 5 mg BID but insurance will only cover 1 per day but they will cover 1 mg Rexulti if you wanted to send a new script for that documented in this encounter Plan of Treatment Not on file documented as of this encounter Visit Diagnoses Not on filedocumented in this encounter Care Teams Teacher Education Instructor Relationship Specialty Start Date End Date Kathy Garcia MD [address] [place] [address] PCP - General Family Medicine 11/21/22 documented as of this encounter
--- OUTSIDE RECORDS SUMMARY | 2025-01-08 10:15 | XMS_ITS | Encounter Summary ---
Author Organization [facility] Address [address] [place] [address] Care Team Providers Care Cable Splicer Helper Name Role Phone Kathy Garcia MD Primary Care Provider [phone] Encounter Details Date Type Department Care Team (Late st Contact Info) Description 09/25/2023 Orders Only [facility] [address] [place] [address] Unallocated, Noms Provider, [address] [place] [address] Social History Tobacco Use Types Packs/Day Years [...] Associated Diagnosis Comments ELECTROCARDIOGRAM REPORT Routine 024 11:59 AM EDT SCANNED LABS Routine 09/25/2023 11:58 AM EDT documented in this encounter Results * Electrocardiogram Report (09/25/2023 11:59 AM EDT) us Noms Provider Unallocated MD IN CLINIC/BEDSIDE O RDERABLES Final Result * SCANNED LABS (09/25/2023 11:58 AM EDT) us Noms Provider Unallocated MD LAB CHG PERFORMABLE S Final Result documented in this encounter Visit Diagnoses Not on filedocumented in this encounter Care Teams Cable Splicer Helper Relationship Specialty Start Date End Date Kathy Garcia MD [address] [facility] 110 [place] [address] PCP - General Family Medicine 11/21/22 documented as of this encounter
--- OUTSIDE RECORDS SUMMARY | 2025-01-08 10:15 | XMS_ITS | Encounter Summary ---
Author Organization [facility] Address [address] [place] [address] Care Team Providers Care Line Appliance Assembler Name Role Phone Kathy Zambrano MD Primary Care Provider [phone] Encounter Details Date Type Department Care Team (Late st Contact Info) Description 12/12/2023 Clinisync Result Encounter [facility] External Department Unsolicited Av Stack, [place] [address] [facility] [address] [place] [id number] Social History Tobacco Use Types Packs/Day Years [...] Procedure Name Priority Date/Time Associated Diagnosis Comments MM TOMOSYNTHESIS SCREENING BI 12/12/2023 1:07 PM EDT documented in this encounter Results * MM TOMOSYNTHESIS SCREENING BI (12/12/2023 1:07 PM EDT) Anatomical Region Laterality Modality Other 12/12/2023 1:07 PM EDT Narrative 12/12/2023 1:08 PM EDT The [address] [address] Mammography Report Signed Patient: CUCA NOGUERA MR#: [id number] : 1965 Acct:[id number] Age/Sex: 58 / F ADM Date: 12/12/23 Loc: MAMMO Attending Dr: AV STACK Ordering Physician: AV STACK Results: Date of Service: 12/12/23 Follow Up: Procedure(s): MM tomosynthesis screening BI Accession Number(s): [id number] cc: KATHY ZAMBRANO ; AV STACK Patient Name: CUCA NOGUERA MR#: [id number] : 1965 Exam Date: 12/12/2023 Ordering Doctor: DR AV STACK PA RADIOLOGY REPORT PROCEDURE: MM TOMOSYNTHESIS [...] prostate cancer at age 68. LOCATION: The [facility] BREAST COMPOSITION: There are scattered areas [...] Signed By: 12/12/23 1308 DD/ 1307 TD/TT: Lab Courier: Procedure Note Radiology, Radiologist, - 12/12/2023 The [place] [id number] Mammography Report Signed Patient: CUCA NOGUERA EMR#: [id number] : 1965Acct:[id number] Age/Sex: 58 / FADM Date: 12/12/23 Loc: MAMMO Attending Dr: AV STACK Ordering Physician: AV STACK MResults: Date of Service: 12/12/23Follow Up: Procedure(s): MM tomosynthesis screening BI Accession Number(s): [id number] cc: KATHY ZAMBRANO ; AV STACK Patient Name: CUCA NOGUERA MR#: [id number] : 1965 Exam Date: 12/12/2023 Ordering Doctor: DR AV BAUGH RADIOLOGY REPORT PROCEDURE: MM TOMOSYNTHESIS SCREENING BI [...] prostate cancer at age 68. LOCATION: The [facility] BREAST COMPOSITION: There are scattered areas [...] M.D. Signed By:12/12/23 1308 DD/ 1307 TD/TT: Lab Courier: Av [facility] Final Result documented in this encounter Visit Diagnoses Not on filedocumented in this encounter Care Teams Line Appliance Assembler Relationship Specialty Start Date End Date Kathy Zambrano MD [address] [facility] 110 [place] [address] PCP - General Family Medicine 11/21/22 documented as of this encounter
--- OUTSIDE RECORDS SUMMARY | 2025-01-08 10:15 | XMS_ITS | Encounter Summary ---
Author Organization [facility] Address [address] [facility] [place] [address] Care Team Providers Care Computer Aided Design Operator Name Role Phone Kathy Garcia MD Primary Care Provider [phone] Encounter Details Date Type Department Care Team (Late st Contact Info) Description 09/25/2023 Abstract [facility] [address] [facility] 110 [place] [address] Kathy Garcia MD [address] [facility] 110 [place] [address] Social History Tobacco Use Types Packs/Day Years [...] on filedocumented in this encounter Care Teams Computer Aided Design Operator Relationship Specialty Start Date End Date Kathy Garcia MD [address] [facility] 110 [place] [address] PCP - General Family Medicine 11/21/22 documented as of this encounter
--- OUTSIDE RECORDS SUMMARY | 2025-01-08 10:15 | XMS_ITS | Encounter Summary ---
Author Organization [facility] Address [address] [place] [address] Care Team Providers Care Physician'S Aide Name Role Phone Kathy Garcia MD Primary Care Provider [phone] Encounter Details Date Type Department Care Team (Late st Contact Info) Description 12/25/2022 Orders Only [facility] [address] [place] [address] [place] [id number] Kathy Garcia MD [address] [place] [address] [place] [address] Social History Tobacco Use Types Packs/Day Years [...] Procedure Name Priority Date/Time Associated Diagnosis Comments XR ABDOMEN ACUTE (PA CHEST) Routine 12/25/2022 4:01 PM EDT XR ABDOMEN ACUTE (PA CHEST) Routine 12/25/2022 4:00 PM EDT documented in this encounter Results * XR ABDOMEN ACUTE (PA CHEST) (12/25/2022 4:01 PM EDT) Anatomical Region Laterality Modality Radiographic Ely ging Kathy Garcia MD IMG XR PROCEDURES Final Result * XR ABDOMEN ACUTE (PA CHEST) (12/25/2022 4:00 PM EDT) Anatomical Region Laterality Modality Radiographic Ely ging us Kathy Garcia MD IMG XR PROCEDURES Final Result documented in this encounter Visit Diagnoses Not on filedocumented in this encounter Care Teams Physician'S Aide Relationship Specialty Start Date End Date Kathy Garcia MD [address] [place] [address] PCP - General Family Medicine 11/21/22 documented as of this encounter
--- OUTSIDE RECORDS SUMMARY | 2025-01-08 10:15 | XMS_ITS | Encounter Summary ---
Author Organization [facility] Address [address] [facility] [place] [address] Care Team Providers Care Cook Cold Meat Name Role Phone Kathy Garcia MD Primary Care Provider [phone] Encounter Details Date Type Department Care Team (Late st Contact Info) Description 01/03/2024 Abstract [facility] [address] [facility] 110 [place] [phone] Kathy Garcia MD [address] [place] [address] [place] [address] Social History Tobacco Use Types Packs/Day Years [...] on filedocumented in this encounter Care Teams Cook Cold Meat Relationship Specialty Start Date End Date Kathy Garcia MD [address] [facility] 110 [place] [address] PCP - General Family Medicine 11/21/22 documented as of this encounter
--- OUTSIDE RECORDS SUMMARY | 2025-01-08 10:15 | XMS_ITS | Encounter Summary ---
Author Organization [facility] Address [address] [facility] [place] [address] Care Team Providers Care Honing Job Setter Name Role Phone Kathy Garcia MD Primary Care Provider [phone] Encounter Details Date Type Department Care Team (Late st Contact Info) Description 09/25/2023 Abstract [facility] [address] [facility] 110 [place] [phone] Kathy Garcia MD [address] [facility] 110 [place] [address] Social History Tobacco Use Types Packs/Day Years [...] on filedocumented in this encounter Care Teams Honing Job Setter Relationship Specialty Start Date End Date Kathy Garcia MD [address] [facility] 110 [place] [address] PCP - General Family Medicine 11/21/22 documented as of this encounter
--- OUTSIDE RECORDS SUMMARY | 2025-01-08 10:15 | XMS_ITS | Encounter Summary ---
Author Organization [facility] Address [address] [place] [address] Care Team Providers Care Dining Room Hostess Name Role Phone Kathy Garcia MD Primary Care Provider [phone] Encounter Details Date Type Department Care Team (Late st Contact Info) Description 09/20/2023 Orders Only [facility] [address] [place] [address] [place] [address] Unallocated, Noms Provider, [address] [place], [place] [phone] Social History Tobacco Use Types Packs/Day Years [...] Associated Diagnosis Comments ELECTROCARDIOGRAM REPORT Routine 024 2:15 PM EST documented in this encounter Results * Electrocardiogram Report (09/17/2023 2:15 PM EST) us Noms Provider Unallocated MD IN CLINIC/BEDSIDE O RDERABLES Final Result documented in this encounter Visit Diagnoses Not on filedocumented in this encounter Care Teams Dining Room Hostess Relationship Specialty Start Date End Date Kathy Garcia MD [address] [place] [address] [place] [address] PCP - General Family Medicine 11/21/22 documented as of this encounter
--- OUTSIDE RECORDS SUMMARY | 2025-01-08 10:15 | XMS_ITS | Encounter Summary ---
Author Organization [facility] Address [address] [place] [address] Care Team Providers Care Wood Panel Inspector Name Role Phone Kathy Garcia MD Primary Care Provider [phone] Encounter Details Date Type Department Care Team (Late st Contact Info) Description 12/05/2023 Orders Only [facility] [address] [place] [address] [place] [address] Unallocated, Noms Provider, [address] [place] [address] Social History Tobacco Use Types Packs/Day Years [...] Procedure Name Priority Date/Time Associated Diagnosis Comments X-RAY : ABDOMEN- KUB Routine 12/05/2023 1:33 PM EDT SCANNED LABS Routine 11/30/2023 1:36 PM EDT ELECTROCARDIOGRAM REPORT Routine 024 1:29 PM EDT documented in this encounter Results * X-RAY : ABDOMEN- KUB (12/05/2023 1:33 PM EDT) Anatomical Region Laterality Modality Radiographic Ely ging us Noms Provider Unallocated MD IMG XR PROCEDURES F inal Result * SC[facility]ED LABS (11/30/2023 1:36 PM EDT) us Noms Provider Unallocated MD LAB CHG PERFORMABLE S Final Result * Electrocardiogram Report (11/30/2023 1:29 PM EDT) us Noms Provider Unallocated MD IN CLINIC/BEDSIDE O RDERABLES Final Result documented in this encounter Visit Diagnoses Not on filedocumented in this encounter Care Teams Wood Panel Inspector Relationship Specialty Start Date End Date Kathy Garcia MD [address] [address] PCP - General Family Medicine 11/21/22 documented as of this encounter
--- OUTSIDE RECORDS SUMMARY | 2025-01-08 10:34 | XMS_ITS | CCD ---
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 [employer] Name Role Phone DR KATHY ZAMBRANO Consulting Unavailable JUAN MANUEL, DR THOMPSON Attending Unavailable JUAN MANUEL, DR THOMPSON Admitting Unavailable JUAN MANUEL, DR THOMPSON Primary Care Unavailable PRATIMA, DR LANDRY Alejandro Consulting Unavailable Kathy Zambrano MD Primary Care Provider KOFI BECKER Attending Unavailable KOFI BECKER Attending Unavailable KATHY ZAMBRANO Attending Unavailable KATHY ZAMBRANO Attending Unavailable Allergies Allergy Classification Reported Allergen(s) Allergy Type Date of Onset Reaction(s) Facility (9 sources) Amoxicillin-Pot Clavulanate Drug Allergy 09-27-2023 [facility] Medications Current Medications Medication Drug Class(es) Dates Sig (Normalized) Sig (Original) ALPRAZolam 0.5 mg oral tablet (12 sources) Benzodiazepine Start: 07-01-2024 End: 01-17-2025 take 1 tablet by mouth in the morning ALPRAZolam (Xanax) 0.5 MG tablet Indications: Anxiety Take 1 tablet (0.5 mg) by mouth in the morning and 1 tablet (0.5 mg) before bedtime. 60 tablet 12/18/2024 01/17/2025 Active brexpiprazole 0.5 mg oral tablet (16 sources) Atypical Antipsychotic Start: 08-04-2024 End: 02-21-2025 take 2 tablets by mouth once daily Brexpiprazole (Rexulti) 0.5 MG tablet Indications: Anxiety , Bipolar disorder, current episode mixed, moderate (CMS/HCC) Take 1 mg by mouth Daily 60 tablet 12/23/2024 02/21/2025 Active Start: 07-01-2024 End: 08-04-2024 take 1 tablet by mouth once daily Brexpiprazole (Rexulti) 0.5 MG tablet Indications: Anxiety , Bipolar disorder, current episode mixed, moderate (CMS/HCC) Take 0.5 mg by mouth Daily 30 tablet 08/04/2024 08/04/2024 Discontinued 12 hr buPROPion hydrochloride 150 mg extended release oral tablet (9 sources) Aminoketone Start: 08-18-2024 take 1 tablet by mouth every twelve hours at bedtime buPROPion SR (Wellbutrin SR) 150 MG 12 hr tablet Indications: Tobacco abuse TAKE 1 TABLET BY MOUTH IN THE MORNING AND BEFORE BEDTIME *DO NOT CRUSH/CHEW/SPLIT* 180 tablet 08/18/2024 Active Start: 05-20-2024 take 1 tablet by antionette th every twelve hours in the morning buPROPion SR (Wellbutrin SR) 150 MG 12 hr tablet Indications: Tobacco abuse TAKE 1 TABLET BY MOUTH IN THE MORNING AND 1 TABLET BEFORE BEDTIME. DO NOT CRUSH, CHEW, OR SPLIT. 180 tablet 05/20/2024 Active docusate sodium 100 mg oral capsule (9 sources) take 1 capsule by mouth in the morning docusate sodium (Colace) 100 MG capsule Take 100 mg by mouth in the morning and 100 mg before bedtime. Active levothyroxine sodium 0.125 mg oral tablet (9 sources) l-Thyroxine Start: take 1 tablet by mouth once daily levothyroxine (Synthroid, Levoxyl) 125 MCG tablet Indications: Hypothyroidism, unspecified type (CMS/HCC) TAKE 1 TABLET BY MOUTH ONCE DAILY AT THE SAME TIME 90 tablet 1 06/25/2024 Active promethazine hydrochloride 50 mg oral tablet (9 sources) Phenothiazine take 1 tablet by mouth every twenty-four hours as needed for nausea and vomiting promethazine (Phenergan) 50 MG tablet Take 50 mg by mouth Daily as needed for nausea or vomiting Active Problems Active Problems Problem Classification Problem Date Documented Da te Episodic/Chronic Anxiety disorders (17 sources) Anxiety; Translations: [Anxiety disorder, unspecified] Onset: 09-27-2023 07-01-2024 Chronic Diseases of white blood cells (9 sources) Leukocytosis; Translations: [Elevated white blood cell count, unspecified] Onset: 09-27-2023 09-27-2023 Chronic Essential hypertension (9 sources) Benign essential hypertension; Translations: [Essential (primary) hypertension] Onset: 09-27-2023 09-27-2023 Chronic Miscellaneous mental health disorders (2 sources) Primary insomnia; Translations: [Primary insomnia] 07-01-2024 Chronic Mood disorders (16 sources) Mixed bipolar affective disorder, moderate; Translations: [Bipolar disorder, current episode mixed, moderate] Onset: 07-01-2024 07-01-2024 Chronic Other screening for suspected conditions (not mental [...] HX MALIG NEOPLASM PROSTATE] Onset: 07-02-2022 Episodic Substance-related disorders (9 sources) Smoker; Translations: [Nicotine dependence, unspecified, uncomplicated] Onset: 09-27-2023 09-27-2023 Chronic Thyroid disorders (11 sources) Hypothyroidism; Translations: [Hypothyroidism, unspecified] Onset: 09-27-2023 09-27-2023 Chronic Past or Other Problems Problem Classification Problem Date Documented Da te Episodic/Chronic Biliary tract disease (18 sources) Biliary sludge; Translations: [Other specified diseases of gallbladder] Onset: 09-27-2023 Resolved: 12-06-2023 07-01-2024 Episodic Cardiac dysrhythmias (18 sources) Palpitations; Translations: [Palpitations] Onset: 05-02-2010 09-27-2023 Episodic Fluid and electrolyte disorders (9 sources) Hypokalemia; Translations: [Hypokalemia] Onset: 07-01-2024 07-01-2024 Episodic Intestinal infection (9 sources) Viral gastroenteritis; Translations: [Viral intestinal infection, unspecified] Onset: 09-27-2023 Resolved: 12-06-2023 12-06-2023 Episodic Nausea and vomiting (9 sources) Nausea and vomiting; Translations: [Nausea with vomiting, unspecified] Onset: 09-27-2023 09-27-2023 Episodic Other non-epithelial cancer of skin (9 sources) Malignant neoplasm of skin; Translations: [Unspecified malignant neoplasm of skin, unspecified] Onset: 05-02-2010 09-27-2023 Episodic Residual codes; unclassified (9 sources) Insomnia; Translations: [Insomnia, unspecified] Onset: 09-27-2023 09-27-2023 Episodic Substance-related disorders (9 sources) Marijuana user; Translations: [Cannabis use, unspecified, uncomplicated] Onset: 12-06-2023 12-06-2023 Episodic Tuberculosis (9 sources) Tuberculosis of skin and subcutaneous tissue; Translations: [Tuberculosis of skin and subcutaneous tissue] Onset: 09-27-2023 09-27-2023 Episodic Results Test Name Value Interpretation Reference Range Facil ity TSH W/REFLEX TO FT4on 2024 TSH W/REFLEX TO FT4 1.11 mIU/L Normal 0.40-4.50 [facility] Comment on above: Order Comment: FASTING:NO FASTING: NO Performed By: #### [id number] #### [facility] [address], [address] [place] [id number] Design Project Manager: Earl Waddell MD MG MAMM SCREEN 3D SAMIR CADon 06-27-2022 MG MAMM SCREEN 3D SAMIR CAD Patient: CUCA NOGUERA Exam Date: 06/27/2022 : 1965 Gender:F Ordering : DR KATHY ZAMBRANO M.D. Admission #: [id number] Family : Order #: [id number] CLICK HERE TO VIEW EXAM RADIOLOGY REPORT [...] prostate cancer at age 68. LOCATION: [facility] BREAST COMPOSITION: Scattered areas fibroglandular density. [...] Mitchell M.D. on 06/27/2022 at 15:19 Normal [facility] Vital Signs Date Time Vital Sign Value Performing Clinician Chuck victoria 12-18-2024 13:05-0400 Body height 160 cm Kofi Becker IR[employer] WORKER [employer]EMAN Work Phone: [facility] 12-18-2024 13:05-0400 Body mass index (BMI) [Ratio] 27.81 kg/m2 Kofi Becker [employer] WORK[employer]EM[employer] Work Phone: [facility] 12-18-2024 13:05-0400 Body weight 71.22 kg Kofi Becker [employer] WORK[employer] Work Phone: [facility] 12-18-2024 13:05-0400 Diastolic blood pressure 82 mm[Hg] Kofi Becker [employer] WORKER [employer] Work Phone: [facility] 12-18-2024 13:05-0400 Heart rate 77 /min Kofi Gallowayvely [employer] WORKER [employer]AN Work Phone: [facility] 12-18-2024 13:05-0400 Respiratory rate 16 /min Kofi Becker [employer] WORKER [employer] Work Phone: [facility] 12-18-2024 13:05-0400 SaO2% (BldA) [Mass fraction] 98 % Kofi Becker [employer] WORKER [employer] Work Phone: [facility] 12-18-2024 13:05-0400 Systolic blood pressure 112 mm[Hg] Kofi Becker [employer] WORKER [employer]AN Work Phone: [facility] 08-04-2024 09:08-0500 Body height 160 cm Kathy Zambrano MD Work Phone: [facility] 08-04-2024 09:08-0500 Body mass index (BMI) [Ratio] 26.93 kg/m2 Kathy Zambrano MD Work Phone: [facility] 08-04-2024 09:08-0500 Body weight 68.95 kg Kathy Zambrano MD Work Phone: [facility] 08-04-2024 09:08-0500 Diastolic blood pressure 82 mm[Hg] Kathy Zambrano MD Work Phone: [facility] 08-04-2024 09:08-0500 Heart rate 95 /min Kathy Zambrano MD Work Phone: [facility] 08-04-2024 09:08-0500 SaO2% (BldA) [Mass fraction] 94 % Kathy Zambrano MD Work Phone: [facility] 08-04-2024 09:08-0500 Systolic blood pressure 122 mm[Hg] Kathy Zambrano MD Work Phone: [facility] 07-01-2024 10:37-0500 Body height 160 cm Kathy Zambrano MD Work Phone: [facility] 07-01-2024 10:37-0500 Body mass index (BMI) [Ratio] 26.57 kg/m2 Kathy Zambrano MD Work Phone: [facility] 07-01-2024 10:37-0500 Body weight 68.04 kg Kathy Zambrano MD Work Phone: [facility] 07-01-2024 10:37-0500 Diastolic blood pressure 82 mm[Hg] Kathy Zambrano MD Work Phone: [facility] 07-01-2024 10:37-0500 Heart rate 86 /min Kathy Zambrano MD Work Phone: [facility] 07-01-2024 10:37-0500 SaO2% (BldA) [Mass fraction] 97 % Kathy Zambrano MD Work Phone: [facility] 07-01-2024 10:37-0500 Systolic blood pressure 132 mm[Hg] Kathy Zambrano MD Work Phone: [facility] Encounters Encounter Date Encounter Type Care Provider Facility Start: 12-23-2024 End: 12-23-2024 Orders Only Kofi Becker [employer] WORK[employer]EMAN Work Phone: [facility] Comment on above: Anxiety; Bipolar disorder, current episode mixed, moderate (CMS/HCC) Start: 12-18-2024 End: 12-18-2024 Bamboo flowsheet Kofi Becker [employer] WORKER FOREMAN Work Phone: [facility] Start: 12-18-2024 End: 12-18-2024 Bamboo flowsheet Kofi Becker IR[employer] WORKER FOREMAN Work Phone: [facility] Start: 12-18-2024 End: 12-18-2024 Telephone encounter Kofi Becker [employer] WORKER [employer]EMAN Work Phone: [facility] Start: 12-18-2024 End: 12-18-2024 Office outpatient visit 25 minutes Kofi Becker [employer] WORKER [employer]EMAN Work Phone: [facility] Comment on above: Anxiety (Primary Dx) ; Bipolar disorder, current episode mixed, moderate (CMS/HCC); Hypothyroidism, unspecified type (CMS/HCC) Start: 12-18-2024 End: 12-18-2024 ambulatory KOFI BECKER Not Available Start: 08-04-2024 End: 08-04-2024 Office outpatient visit 25 minutes Kathy Zambrano MD Work Phone: [facility] Comment on above: Anxiety; Bipolar disorder, current episode mixed, moderate (CMS/HCC) Start: 08-04-2024 End: 08-04-2024 ambulatory KATHY ZAMBRANO Not Available Start: 07-01-2024 End: 07-01-2024 Office outpatient visit 25 minutes Kathy Zambrano MD Work Phone: [facility] Comment on above: Anxiety (Primary Dx) ; Bipolar disorder, current episode mixed, moderate (CMS/HCC); Primary insomnia Start: 07-01-2024 End: 07-01-2024 ambulatory KATHY ZAMBRANO Not Available Start: 02-28-2024 End: 02-28-2024 ambulatory KOFI BECKER Not Available Start: 06-27-2022 End: 06-28-[address] KATHY ZAMBRANO Facility:[facility]1 Procedures Date Procedure Procedure Detail Performing Clinician Start: 12-12-2023 Mammography Kathy Zambrano MD Work Phone: Start: 03-12-2017 Colonoscopy Kathy Zambrano MD Work Phone: Plan of Treatment Date Care Activity Detail Author Start: 03-12-2027 Screening for malign ant neoplasm of colon [facility] Start: 03-16-2025 Influenza vaccination Influenz a Vaccine (Season Ended) [facility] Start: 12-18-2024 End: 12-18-2025 TSH W/REFLEX TO FT4 TSH W/REFLEX TO FT4 Lab Routine Hypothyroidism, unspecified type (CMS/HCC) Expected: 12/18/2024 (Approximate), Expires: 12/18/2025 [facility] Work Phone: Comment on above: Expected: 12/18/2024 (Approximate), Expires: 12/18/2025 Start: 12-18-2024 End: 12-18-2024 Patient encounter procedure 12/18/2024 1:00 PM EDT Office Visit [facility] [address] [facility] [address] [place] [address] Kofi Becker, IRON WORKER FOREMAN [address] [facility] [address] [place] [address] Arrived [facility] Comment on above: Arrived Start: 12-11-2024 Screening for malign ant neoplasm of breast Mammogram [facility] Start: 08-26-2024 Influenza vaccination Influenza Vacc ine (#1) [facility] Comment on above: Postponed from 03/16 (Patient Refused) Start: 1995 Screening for malign ant neoplasm of cervix [facility] Start: 1986 Screening for malign ant neoplasm of cervix Pap Smear [facility] Start: 1965 Screening for malign ant neoplasm of colon [facility] Immunizations Immunization Date Immunization Notes Care Provider Fa cility 05-12-2009 novel Influenza-H1N1 -09, live virus for nasal administration Kathy Zambrano MD Work Phone: [facility] Payers Date Payer Category Payer Private Health Insurance [id number] 2023 Private Health Insurance [id number] 2023 Unknown [id number] 1965 Unknown [id number] 1965 Unknown [id number] 1965 Unknown [id number] 1965 Unknown [id number] 1965 Unknown [id number] 1959 Unknown [id number] Private Health Insurance [id number] Social History Date Type Detail Facility Start: 12-06-2023 Tobacco smoking stat [facility] Smokes tobacco daily [facility] Work Phone: History of tobacco use Cigarette Smoker [facility] Start: 12-06-2023 Tobacco use and exposure Smokeless tobacco non-user [facility] Start: 07-01-2024 End: 12-18-2024 Alcoholic beverage intake Current drinker of alcohol (finding) [facility] Start: 07-01-2024 End: 12-18-2024 History of Social function [facility] Start: 07-01-2024 End: 12-18-2024 Tobacco use panel [facility] Start: 09-26-2023 Tobacco Comment 5 or less ciga rettes a day [facility] Start: 09-26-2023 Alcohol Comment Points: 2, Interpretation: Negative; Caffeine Intake: 1-2 cups per day soda [facility] Start: 1965 Sex assigned at Not on file N [facility] Functional Status Date Assessment Result Facility 12-18-2024 Patient Health [facility] ionnaire 2 item (PHQ-2) [Reported] [facility] 12-18-2024 PHQ-9 quick depressi on assessment panel [Reported.PHQ] [facility] Telephone encounter Note 12-18-2024 Telephone Encounter - Kofi Becker NP - 12/18/2024 1:30 PM EDT Note Date & Type Note Facility 12-18-2024 Telephone encount er Note Pt needs xanax refilled. She has been out of work and just got insurance. She had her visit today [facility] Note 12-18-2024 Telephone Encounter - Kofi Becker NP - 12/18/2024 1:30 PM EDT Note Date & Type Note Facility 12-18-2024 Miscellaneous Notes Formattin g of this note might be different from the original. Pt needs xanax refilled. She has been out of work and just got insurance. She had her visit today documented in this encounter [facility] History of Present illness Narrative 12-18-2024 Kofi Becker NP - 12/18/2024 1:00 PM EDT Note Date & Type Note Facility 12-18-2024 History of Presen t illness Narrative Images from the original note were not included. Subjective Patient ID: Cuca Noguera is a 59 y.o. female who presents for anxiety. Cuca presents today for anxiety. She is here for her medication F/U. She is also having some issues with feeling bloated. Pt stopped xanax because she did not have any insurance. She would like to get restarted. Anxiety Presents for follow-up visit. Symptoms include chest pain, excessive worry, insomnia, irritability, nervous/anxious behavior, palpitations and restlessness. Symptoms occur constantly. The severity of symptoms is moderate. The patient sleeps 4 hours per night. The quality of sleep is non-restorative. Nighttime awakenings: several. Compliance with medications is 0-25%. Current Outpatient Medications on File Prior to Visit Medication Sig Dispense Refill ALPRAZolam (Xanax) 0.5 MG tablet Take 1 tablet (0.5 mg) by mouth in the morning and 1 tablet (0.5 mg) before bedtime. 60 tablet 0 Brexpiprazole (Rexulti) 0.5 MG tablet Take 1 mg by mouth Daily 60 tablet 0 buPROPion SR (Wellbutrin SR) 150 MG 12 hr tablet TAKE 1 TABLET BY MOUTH IN THE MORNING AND BEFORE BEDTIME *DO NOT CRUSH/CHEW/SPLIT* 180 tablet 0 docusate sodium (Colace) 100 MG capsule Take 100 mg by mouth in the morning and 100 mg before bedtime. levothyroxine (Synthroid, Levoxyl) 125 MCG tablet TAKE 1 TABLET BY MOUTH ONCE DAILY AT THE SAME TIME 90 tablet 1 promethazine (Phenergan) 50 MG tablet Take 50 mg by mouth Daily as needed for nausea or vomiting No current facility-administered medications on file prior to visit. I have reviewed and reconciled the history and medication list with the patient today. Allergies Allergen Reactions Amoxicillin-Pot Clavulanate Other Reaction(s): hives Social History Tobacco Use Smoking status: Every Day Types: Cigarettes Smokeless tobacco: Never Tobacco comments: 5 or less cigarettes a day Vaping Use Vaping status: Never Used Substance Use Topics Alcohol use: Yes Comment: Points: 2, Interpretation: Negative; Caffeine Intake: 1-2 cups per day soda Drug use: Yes Types: Marijuana Family History Problem Relation Name Age of Onset Heart disease Mother Breast cancer Mother Heart disease Father Prostate cancer Father Rheum arthritis Sister Other (Emergency Hysterectomy Tumor) Sister Past Medical History: Diagnosis Date Allergies Anxiety Bronchitis Calculus of gallbladder with acute on chronic cholecystitis without obstruction 09/27/2023 Chicken pox COVID 12/30/2021 Positive Jordan Hughes Depression (CMS/HCC) Dizziness 12/25/2022 ER visit: CT scan of the Brain was normal Family history of cancer Heart disease Hypertension (CMS/HCC) Hypothyroidism (CMS/HCC) Skin cancer Thyroid disease (CMS/HCC) Past Surgical History: Procedure Laterality Date CHOLECYSTECTOMY 06/09/[address] Pelayo [facility] COLONOSCOPY 2018 SKIN CANCER EXCISION TONSILLECTOMY TUBAL LIGATION Bilateral 1992 Visit Vitals Smoking Status Every Day Review of Systems Constitutional: Positive for irritability. HENT: Negative. Eyes: Negative. Respiratory: Negative. Cardiovascular: Positive for chest pain and palpitations. Gastrointestinal: Negative. Genitourinary: Negative. Musculoskeletal: Negative. Skin: Negative. Neurological: Negative. Psychiatric/Behavioral: The patient is nervous/anxious and has insomnia. Objective Physical Exam Vitals reviewed. Constitutional: Appearance: Normal appearance. HENT: Head: Normocephalic. Nose: Nose normal. Mouth/Throat: Mouth: Mucous membranes are moist. Pharynx: Oropharynx is clear. Eyes: Conjunctiva/sclera: Conjunctivae normal. Cardiovascular: Rate and Rhythm: Normal rate. Pulmonary: Effort: Pulmonary effort is normal. Skin: General: Skin is warm and dry. Neurological: General: No focal deficit present. Mental Status: She is alert and oriented to person, place, and time. Psychiatric: Mood and Affect: Mood normal. Behavior: Behavior normal. Thought Content: Thought content normal. Judgment: Judgment normal. Assessment/Plan Diagnoses and all orders for this visit: Anxiety - Brexpiprazole (Rexulti) 0.5 MG tablet; Take 1 mg by mouth Daily Take medication as directed. Verbalizes understanding of the need to be seen in the ER for excessive stress, elevated blood pressure or palpitations. Advised on relaxation methods to decrease anxiety and depression. Pt offers understanding of treatment plan. Bipolar disorder, current episode mixed, moderate (CMS/HCC) - Brexpiprazole (Rexulti) 0.5 MG tablet; Take 1 mg by mouth Daily Take medication as directed. Verbalizes understanding of the need to be seen in the ER for excessive stress, elevated blood pressure or palpitations. Advised on relaxation methods to decrease anxiety and depression. Pt offers understanding of treatment plan. Hypothyroidism, unspecified type (CMS/HCC) - TSH W/REFLEX TO FT4; Future Pt needs refill of medication but she has not had lab for a year. Lab ordered. Will send in thyroid medication once lab is obtained. No follow-ups on file. documented in this encounter [facility] History of Present illness Narrative 08-04-2024 Kathy Zambrano MD - 08/04/2024 9:34 AM Aysha Zambrano MD - 08/04/2024 9:34 AM Aysha Zambrano MD - 08/04/2024 9:15 AM EST Note Date & Type Note Facility 08-04-2024 History of Presen t illness Narrative Associated Problem(s): Anxiety Patient's Medicine is effective at controlling symptoms at current dose and frequency. PDMP reviewed with no evidence of overuse and abuse D/W patient to avoid use of benzodiazepines when consuming alcohol Advised against operating heavy machinery and driving long distances while on medicines. Associated Problem(s): Bipolar disorder, current episode mixed, moderate (CMS/HCC) Tolerating medicine and doing well Script called in Images from the original note were not included. Subjective Patient ID: Cuca Noguera is a 59 y.o. female who presents for Anxiety. Pt states medication is doing good for her and she can tell the difference She can tell a difference Quit Job at [employer] Anxiety Presents for follow-up visit. Symptoms include palpitations, panic and restlessness. Symptoms occur occasionally. The severity of symptoms is moderate. The quality of sleep is fair. Nighttime awakenings: occasional. Current Outpatient Medications on File Prior to Visit Medication Sig Dispense Refill buPROPion SR (Wellbutrin SR) 150 MG 12 hr tablet TAKE 1 TABLET BY MOUTH IN THE MORNING AND 1 TABLET BEFORE BEDTIME. DO NOT CRUSH, CHEW, OR SPLIT. 180 tablet 0 docusate sodium (Colace) 100 MG capsule Take 100 mg by mouth in the morning and 100 mg before bedtime. levothyroxine (Synthroid, Levoxyl) 125 MCG tablet TAKE 1 TABLET BY MOUTH ONCE DAILY AT THE SAME TIME 90 tablet 1 promethazine (Phenergan) 50 MG tablet Take 50 mg by mouth Daily as needed for nausea or vomiting [DISCONTINUED] ALPRAZolam (Xanax) 0.5 MG tablet Take 1 tablet (0.5 mg) by mouth in the morning and 1 tablet (0.5 mg) before bedtime. 60 tablet 0 [DISCONTINUED] Brexpiprazole (Rexulti) 0.5 MG tablet Take 0.5 mg by mouth Daily 30 tablet 0 No current facility-administered medications on file prior to visit. I have reviewed and reconciled the history and medication list with the patient today. Allergies Allergen Reactions Amoxicillin-Pot Clavulanate Other Reaction(s): hives Social History Tobacco Use Smoking status: Every Day Types: Cigarettes Smokeless tobacco: Never Tobacco comments: 5 or less cigarettes a day Vaping Use Vaping status: Never Used Substance Use Topics Alcohol use: Yes Comment: Points: 2, Interpretation: Negative; Caffeine Intake: 1-2 cups per day soda Drug use: Yes Types: Marijuana Family History Problem Relation Name Age of Onset Heart disease Mother Breast cancer Mother Heart disease Father Prostate cancer Father Rheum arthritis Sister Other (Emergency Hysterectomy Tumor) Sister Past Medical History: Diagnosis Date Allergies Anxiety Bronchitis Calculus of gallbladder with acute on chronic cholecystitis without obstruction 09/27/2023 Chicken pox COVID 12/30/2021 Positive Jand J Depression (CMS/HCC) Dizziness 12/25/2022 ER visit: CT scan of the Brain was normal Family history of cancer Heart disease Hypertension (CMS/HCC) Hypothyroidism (CMS/HCC) Skin cancer Thyroid disease (CMS/HCC) Past Surgical History: Procedure Laterality Date CHOLECYSTECTOMY 06/09/[address] Pelayo [facility] COLONOSCOPY 2018 SKIN CANCER EXCISION TONSILLECTOMY TUBAL LIGATION Bilateral 1992 Visit Vitals BP 122/82 Pulse 95 Ht 5' 3 Wt 152 lb SpO2 94% BMI 26.93 kg/m Smoking Status Every Day BSA 1.75 m Review of Systems Constitutional: Negative for chills and fever. Cardiovascular: Positive for palpitations. Gastrointestinal: Negative for constipation and diarrhea. Psychiatric/Behavioral: Positive for agitation and behavioral problems. Objective Physical Exam Constitutional: General: She is not in acute distress. Appearance: Normal appearance. HENT: Head: Normocephalic. Cardiovascular: Rate and Rhythm: Normal rate and regular rhythm. Pulmonary: Effort: Pulmonary effort is normal. No respiratory distress. Breath sounds: Normal breath sounds. Neurological: General: No focal deficit present. Mental Status: She is alert and oriented to person, place, and time. Psychiatric: Mood and Affect: Mood normal. Assessment/Plan Problem List Items Addressed This Visit Anxiety Patient's Medicine is effective at controlling symptoms at current dose and frequency. PDMP reviewed with no evidence of overuse and abuse D/W patient to avoid use of benzodiazepines when consuming alcohol Advised against operating heavy machinery and driving long distances while on medicines. Relevant Medications ALPRAZolam (Xanax) 0.5 MG tablet Brexpiprazole (Rexulti) 0.5 MG tablet Bipolar disorder, current episode mixed, moderate (CMS/HCC) Tolerating medicine and doing well Script called in Relevant Medications Brexpiprazole (Rexulti) 0.5 MG tablet Follow up in about 3 months (around 11/02/2024) for Anxiety Meds F/U. documented in this encounter [facility] History of Present illness Narrative 07-01-2024 Kathy Zambrano MD - 07/01/2024 11:04 AM Aysha Zambrano MD - 07/01/2024 10:30 AM EST Note Date & Type Note Facility 07-01-2024 History of Presen t illness Narrative Associated Problem(s): Anxiety Patient's Medicine is effective at controlling symptoms at current dose and frequency. PDMP reviewed with no evidence of overuse and abuse D/W patient to avoid use of benzodiazepines when consuming alcohol Advised against operating heavy machinery and driving long distances while on medicines. Images from the original note were not included. Subjective Patient ID: Cuca Noguera is a 59 y.o. female who presents for Anxiety. Pt is wanting to get back on anxiety medication, pt works as a [employer] and would like to go back on due to needing help with her moods and anxiety 2 years at [place] [facility] Presents for follow-up visit. Symptoms include palpitations, panic and restlessness. Symptoms occur occasionally. The severity of symptoms is moderate. The quality of sleep is fair. Nighttime awakenings: occasional. Current Outpatient Medications on File Prior to Visit Medication Sig Dispense Refill buPROPion SR (Wellbutrin SR) 150 MG 12 hr tablet TAKE 1 TABLET BY MOUTH IN THE MORNING AND 1 TABLET BEFORE BEDTIME. DO NOT CRUSH, CHEW, OR SPLIT. 180 tablet 0 docusate sodium (Colace) 100 MG capsule Take 100 mg by mouth in the morning and 100 mg before bedtime. levothyroxine (Synthroid, Levoxyl) 125 MCG tablet TAKE 1 TABLET BY MOUTH ONCE DAILY AT THE SAME TIME 90 tablet 1 promethazine (Phenergan) 50 MG tablet Take 50 mg by mouth Daily as needed for nausea or vomiting [DISCONTINUED] levothyroxine (Synthroid, Levoxyl) 125 MCG tablet TAKE 1 TABLET BY MOUTH ONCE DAILY AT THE SAME TIME 100 tablet 0 No current facility-administered medications on file prior to visit. I have reviewed and reconciled the history and medication list with the patient today. Allergies Allergen Reactions Amoxicillin-Pot Clavulanate Other Reaction(s): hives Social History Tobacco Use Smoking status: Every Day Types: Cigarettes Smokeless tobacco: Never Tobacco comments: 5 or less cigarettes a day Vaping Use Vaping status: Never Used Substance Use Topics Alcohol use: Yes Comment: Points: 2, Interpretation: Negative; Caffeine Intake: 1-2 cups per day soda Drug use: Yes Types: Marijuana Family History Problem Relation Name Age of Onset Heart disease Mother Breast cancer Mother Heart disease Father Prostate cancer Father Rheum arthritis Sister Other (Emergency Hysterectomy Tumor) Sister Past Medical History: Diagnosis Date Allergies Anxiety Bronchitis Calculus of gallbladder with acute on chronic cholecystitis without obstruction 09/27/2023 Chicken pox COVID 12/30/2021 Positive [facility] Hughes Depression (CMS/HCC) Dizziness 12/25/2022 ER visit: CT scan of the Brain was normal Family history of cancer Heart disease Hypertension (CMS/HCC) Hypothyroidism (CMS/HCC) Skin cancer Thyroid disease (CMS/HCC) Past Surgical History: Procedure Laterality Date CHOLECYSTECTOMY 06/09/[address] Pelayo [facility] [place] COLONOSCOPY 2018 SKIN CANCER EXCISION TONSILLECTOMY TUBAL LIGATION Bilateral 1992 Visit Vitals BP 132/82 Pulse 86 Ht 5' 3 Wt 150 lb SpO2 97% BMI 26.57 kg/m Smoking Status Every Day BSA 1.74 m Review of Systems Cardiovascular: Positive for palpitations. Gastrointestinal: Negative for constipation and diarrhea. Psychiatric/Behavioral: Positive for agitation and behavioral problems. Objective Physical Exam Constitutional: General: She is not in acute distress. Appearance: Normal appearance. HENT: Head: Normocephalic. Cardiovascular: Rate and Rhythm: Normal rate and regular rhythm. Pulmonary: Effort: Pulmonary effort is normal. No respiratory distress. Breath sounds: Normal breath sounds. Neurological: General: No focal deficit present. Mental Status: She is alert and oriented to person, place, and time. Psychiatric: Mood and Affect: Mood normal. Assessment/Plan Problem List Items Addressed This Visit Anxiety - Primary Patient's Medicine is effective at controlling symptoms at current dose and frequency. PDMP reviewed with no evidence of overuse and abuse D/W patient to avoid use of benzodiazepines when consuming alcohol Advised against operating heavy machinery and driving long distances while on medicines. Relevant Medications ALPRAZolam (Xanax) 0.5 MG tablet Brexpiprazole (Rexulti) 0.5 MG tablet Insomnia Bipolar disorder, current episode mixed, moderate (CMS/HCC) Relevant Medications Brexpiprazole (Rexulti) 0.5 MG tablet Follow up in about 4 weeks (around 07/29/2024) for Anxiety Meds F/U. documented in this encounter [facility] Evaluation note Note Date & Type Note Facility Evaluation note Diagnosis Nausea and vomiting, unspecified vomiting type- Primary Viral gastroenteritis Intestinal infection due to other organism, NEC Leukocytosis, unspecified type Hypothyroidism, unspecified type (CMS/HCC) Anxiety- Primary Anxiety state, unspecified Bipolar disorder, current episode mixed, moderate (CMS/HCC) Primary insomnia Persistent disorder of initiating or maintaining sleep documented in this encounter [facility] Evaluation note Note Date & Type Note Facility Evaluation note Diagnosis Nausea and vomiting, unspecified vomiting type- Primary Viral gastroenteritis Intestinal infection due to other organism, NEC Leukocytosis, unspecified type Hypothyroidism, unspecified type (CMS/HCC) Anxiety- Primary Anxiety state, unspecified Bipolar disorder, current episode mixed, moderate (CMS/HCC) Primary insomnia Persistent disorder of initiating or maintaining sleep Anxiety Anxiety state, unspecified Bipolar disorder, current episode mixed, moderate (CMS/HCC) documented in this encounter [facility] Evaluation note Note Date & Type Note Facility Evaluation note Diagnosis Nausea and vomiting, unspecified vomiting type- Primary Viral gastroenteritis Intestinal infection due to other organism, NEC Leukocytosis, unspecified type Hypothyroidism, unspecified type (CMS/HCC) Anxiety- Primary Anxiety state, unspecified Bipolar disorder, current episode mixed, moderate (CMS/HCC) Primary insomnia Persistent disorder of initiating or maintaining sleep Anxiety Anxiety state, unspecified Bipolar disorder, current episode mixed, moderate (CMS/HCC) Anxiety- Primary Anxiety state, unspecified Bipolar disorder, current episode mixed, moderate (CMS/HCC) Hypothyroidism, unspecified type (CMS/HCC) documented in this encounter [facility] Evaluation note Note Date & Type Note Facility Evaluation note Diagnosis Nausea and vomiting, unspecified vomiting type- Primary Viral gastroenteritis Intestinal infection due to other organism, NEC Leukocytosis, unspecified type Hypothyroidism, unspecified type (CMS/HCC) Anxiety- Primary Anxiety state, unspecified Bipolar disorder, current episode mixed, moderate (CMS/HCC) Primary insomnia Persistent disorder of initiating or maintaining sleep Anxiety Anxiety state, unspecified Bipolar disorder, current episode mixed, moderate (CMS/HCC) Anxiety Anxiety state, unspecified documented in this encounter [facility] Evaluation note Note Date & Type Note Facility Evaluation note Diagnosis Nausea and vomiting, unspecified vomiting type- Primary Viral gastroenteritis Intestinal infection due to other organism, NEC Leukocytosis, unspecified type Hypothyroidism, unspecified type (CMS/HCC) Anxiety- Primary Anxiety state, unspecified Bipolar disorder, current episode mixed, moderate (CMS/HCC) Primary insomnia Persistent disorder of initiating or maintaining sleep Anxiety Anxiety state, unspecified Bipolar disorder, current episode mixed, moderate (CMS/HCC) Anxiety Anxiety state, unspecified Bipolar disorder, current episode mixed, moderate (CMS/HCC) documented in this encounter [facility] Summary Purpose Family History No Family History Records FoundNo Family History Records FoundNo Family History Records Found Advance Directives No Advanced Directives Records FoundNo Advanced Directives Records FoundNo Advanced Directives Records Found Additional Source Comments INFORMATION SOURCE (unrecogn ized section and content) DATE CREATED AUTHOR 09/16/2022 [facility] DATE CREATED AUTHOR AUTHOR'S ORGANIZ ATION 12/19/2024 [facility] EPIC DATE CREATED AUTHOR AUTHOR'S ORGANIZ ATION 12/20/2024 [facility] Reason for Visit (unrecogniz ed section and content) Reason Comments Anxiety Care Teams (unrecognized sec tion and content) [employer] Relationship Specialty Start Date End Date Kathy Zambrano MD [address] [facility] [address] [place] [address] PCP - General Family Medicine 11/21/22 [employer] Relationship Specialty Start Date End Date Kathy Zambrano MD [address] [place] [address] [place] [address] PCP - General Family Medicine 11/21/22 [employer] Relationship Specialty Start Date End Date Kathy Zambrano MD [address] [place] [address] [place] [address] PCP - General Family Medicine 11/21/22 [employer] Relationship Specialty Start Date End Date Kathy Zambrano MD [address] [facility] [address] [place] [address] PCP - General Family Medicine 11/21/22 [employer] Relationship Specialty Start Date End Date Kathy Zambrano MD [address] [facility] [address] [place] [address] PCP - General [facility] Medicine 11/21/22 [employer] Relationship Specialty Start Date End Date Kathy Zambrano MD [address] [facility] [address] [place] [address] PCP - General Family Medicine 11/21/22 FOR RECORDS PERTAINING TO PATIENTS WHO ARE [...] BE BASED ON THE PRIMARY CLINICAL RECORDS. [employer] provides no warranty or guarantee of the accuracy or completeness of information in this document.
== END 2025-01-08 10:13 | disposition home or self-care (01) ==
LOC: MAMMO 10:13
PROVIDERS: PCP Family Medicine; Visit Provider Family Medicine
DX: Z12.31 Encounter for screening mammogram for malignant neoplasm of breast (principal); Z80.3 Family history of malignant neoplasm of breast; Z80.42 Family history of malignant neoplasm of prostate
CPT/HCPCS: 77063; 77067